=== PATIENT | male | born 1950 | race Caucasian/White ===

== ENCOUNTER → 2016-12-06 | Outpatient (CLI) | payer MEDICARE ==
[~2016-12-06] MED LIST: AMLODIPINE BESY1 TAB PO; ASPIRIN ADULT L81 M2 PO; ASPIRIN325 MG PO; BP PILL; BUMETANIDE1 MG PO; CARVEDILOL12.5 MG PO; CLONIDINE0.2 MG PO; CLONIDINE0.2 MG/21 TD; COREG12.5 M1 PO; ENALAPRIL MALEA10 MG PO; FINASTERIDE5 M1 PO; FLOMAX0.4 MG PO; GLIPIZIDE10 M2 PO; GLUCOTROL5 MG PO; HUMALOG100 U/ML SC; HYDROCHLOROTHIA25 M1 PO; LASIX40 MG PO; METFORMIN1000 MG PO; METFORMIN500 MG PO; NORVASC10 MG PO; SIMVASTATIN20 MG PO; TAMSULOSIN HCL0.4 MG PO; VASOTEC20 MG PO; WATER PILL; ZOCOR20 MG PO
== END | disposition home or self-care (01) ==
LOC: RESCLI 01:10
DX: I12.9 Hypertensive chronic kidney disease with stage 1 through stage 4 chronic kidney disease, or unspecified chronic kidney disease (principal); E78.5 Hyperlipidemia, unspecified; E66.9 Obesity, unspecified; E11.9 Type 2 diabetes mellitus without complications; N18.3 Chronic kidney disease, stage 3 (moderate)

== ENCOUNTER → 2016-12-13 | Outpatient (CLI) | payer MEDICARE | END | disposition home or self-care (01) | LOC: RESCLI 13:41 | DX: I12.9 Hypertensive chronic kidney disease with stage 1 through stage 4 chronic kidney disease, or unspecified chronic kidney disease (principal); N18.3 Chronic kidney disease, stage 3 (moderate); E11.9 Type 2 diabetes mellitus without complications; E78.5 Hyperlipidemia, unspecified ==

== ENCOUNTER 2017-02-17 23:48 | Inpatient (IN) | payer MEDICARE ==
[~2017-02-17] VITALS: Ht 170.1 cm; Wt 115.4 kg
--- NOTE | ~2017-02-17 | PR ---
[place], [place] PROGRESS NOTE NAME: TONY CANCHOLA UNIT #: [id number] ROOM: 407 DOCTOR: BOBBY DINH MD BIRTHDATE: [birth year] DOS: 02/23/2017 PULMONARY PROGRESS NOTE SUBJECTIVE: The patient has been noted comfortable at this time, sitting on the chair. Diuresis for the patient has been ongoing with the current diuretic. Shortness of breath has been improving. There were no symptoms of chest pain or any abdominal pain. OBJECTIVE: VITAL SIGNS: For the patient which has been recorded showed the temperature of the patient noted as normal. The respiratory rate 20, heart rate 83 and blood pressure ____. Pulse oxygen saturation on 2 liters nasal cannula was 96% saturation recorded. HEENT: Showed no acute change. NECK: Supple. CARDIOVASCULAR: S1, S2 audible. LUNGS: The patient was noted without any wheezing or crackles at this time. The breath sounds are noted somewhat decreased in the left lower lung. ABDOMEN: Soft, nontender. EXTREMITIES: Shows progressive resolution of edema of the lower extremities. IMPRESSION: 1. The patient with resolving acute hypercapnic and hypoxic respiratory failure. 2. Resolving acute congestive heart failure. 3. Atelectasis of left lower lobe for this patient was noted as well, possibility of acute pneumonia. LABORATORY DATA: Chest x-ray of the patient done this morning shows improvement in the aeration of the lungs for the patient, but only one x-ray was done. The renal function panel today was noted with BUN 39 and creatinine 1.99. CO2 of 36. PLAN OF TREATMENT: Continue diuretic. Monitor kidney functions closely. Bronchodilators and oxygen supplementation. Other supportive therapy, plan of management to be continued. Usual treatment. Ambulation would be encouraged. [place], [place] PROGRESS NOTE NAME: TONY CANCHOLA UNIT #: [id number] ROOM: 407 DOCTOR: BOBBY DINH MD BIRTHDATE: [birth year] BOBBY MADDOX MD CM:PNTRANS [id number] BOBBY GARCIA MD 02/23/17 2319 interface
--- NOTE | ~2017-02-17 | PROC NOTE ---
[place], [place] PROCEDURE NOTE [id number] UNIT #: [id number] ROOM: [facility] DOCTOR: LESLEY LAMBERT BIRTHDATE: [birth year] DOS: 02/18/2017 MODIFIED BARIUM SWALLOW BACKGROUND HISTORY AND MEDICAL HISTORY: The patient familiar to the speech Department, he was referred for modified barium swallow after bedside assessment, he did not display any overt signs and symptoms of aspiration at bedside, had some mild lingual weakness and range of motion with elevation. The patient reports ____ coughs and chokes and feels like liquids go down the wrong pipe inconsistently and denies this every day. The patient reports he has pneumonia. He has a history of CHF and a stroke in October of 2016. The patient denied modified barium swallow or swallowing therapy, he reported that a therapist told him he did not have any swallowing difficulty per bedside swallow after his initial stroke. The patient reports this is his first incident of pneumonia. The patient currently reports he is on a regular diet but struggles inconsistently with liquids. METHODS AND PROCEDURES: The patient was alert. Able to follow commands. He was seated upright in a wheelchair. The patient was a good historian, was able to self feed. He was administered thin liquid via cup, thin liquid via straw, applesauce with barium paste and a piece of a cookie with barium paste. ORAL PHASE: The patient presents adequate oral phase for all consistencies. He demonstrated good rotary mastication and adequate ability to form and propel a cohesive bolus. No significant oral residue noted in the oral cavity post-swallow. PHARYNGEAL PHASE: The patient demonstrated penetration silently with no cough or throat clear which eventually fell below the level of the vocal cords to be considered aspiration during the swallow on thin liquid. A chin tuck was utilized with a straw with a chin tuck completely to the chest on thin liquid and sequential swallows and patient demonstrated no penetration or aspiration. The patient tolerated applesauce and solid with no pharyngeal residue. Aspiration was suspected due to reduced anterior and laryngeal elevation, which affected airway protection, and epiglottis covering the airway. RECOMMENDATIONS AND IMPRESSION: It is recommended and this was discussed with patient and his nurse that patient chin tuck completely with all liquids including soups and cereals or foods that have liquid in them. Speech pathology will follow the patient at bedside and implement a program for tongue base and laryngeal excursion. It is recommended the patient be seen for him for outpatient or inhouse therapy, whichever he is able to attend upon discharge to continue the program to try to improve his swallow and reduce the need for chin tuck as he was concerned and upset about recommendations to use a chin tuck. Patient tolerates a regular diet. Thank you for this referral. [place], [place] PROCEDURE NOTE NAME: TONY CANCHOLA UNIT #: [id number] ROOM: [facility] DOCTOR: ELSLEY LAMBERT BIRTHDATE: [birth year] LESLEY LAMBERT CM:PROCNOTE:PROCEDURE NOTE [id number] LESLEY LAMBERT
--- NOTE | ~2017-02-17 | PR ---
[place], [place] PROGRESS NOTE NAME: TONY CANCHOLA UNIT #: [id number] ROOM: 407 DOCTOR: BOBBY DINH MD BIRTHDATE: [birth year] DOS: 02/21/2017 SUBJECTIVE: He has been comfortably resting, sitting on the chair, using oxygen supplementation nasal cannula. Denies symptoms of chest pain, nausea, vomiting. The patient has been noted mild coughing without any sputum expectoration. There was no wheezing. OBJECTIVE: VITAL SIGNS: Normal temperature, respiratory rate 20, heart rate 91, blood pressure 130/64-142/59. Intake 2300 mL, output 5200 mL, liters. Pulse oxygen 2 liters nasal cannula 96% saturation. HEENT: Examination shows head was atraumatic. Eyes nonicterus. NECK: Supple. CARDIOVASCULAR: S1, S2 audible. LUNGS: The patient was noted without any wheezing or crackles at the present time. ABDOMEN: Soft, nontender. LABORATORY DATA: The sputum culture for the patient noted normal radha in preliminary from 02/19/2017. The BMP of the patient that was done this morning shows BUN 39, creatinine 2.09, glucose 135, CO2 of 36. The chest x-ray that was done this morning was reviewed with the patient. He was noted with continued improvement in the aeration of the right lung. Area of the left lower lobe atelectasis was noted. Superimposed congestive heart failure finding of the patient has been resolving. IMPRESSION: 1. The patient with progressive resolution of the acute hypercapnic and hypoxic respiratory failure result of acute congestive heart failure and acute bacterial pneumonia. 2. Left lower lobe atelectasis of the patient was still noted. 3. Chronic obesity. 4. Strong clinical suspicion of obstructive sleep apnea disorder. 5. Progressive increased kidney injury of the patient secondary to most likely diuretics and other etiologies. PLAN OF TREATMENT: Monitor respiratory status. Continue the oxygen supplementation and other plan of management. Usual care. Supportive therapy as a plan of care as well. Usual treatments. All other plan of management as previously in progress. Monitoring of the respiratory status closely. [place], [place] PROGRESS NOTE NAME: TONY CANCHOLA UNIT #: [id number] ROOM: 407 DOCTOR: BOBBY DINH MD BIRTHDATE: [birth year] BOBBY MADDOX MD CM:PNTRANS [phone] BOBBY GARCIA MD 02/21/17 1102 interface
--- NOTE | ~2017-02-17 | CON ---
[place], [place] REPORT OF CONSULTATION [id number] UNIT #: [id number] ROOM: [facility] DOCTOR: BOBBY DINH MD BIRTHDATE: [birth year] DOS: 02/18/2017 PULMONARY CONSULTATION EVALUATION AND MANAGEMENT CONSULTATION REQUESTED BY: The hospitalist services for assessment of respiratory status. HISTORY OF PRESENT ILLNESS: A 66-year-old white male patient who has been known with history of recent stroke with the patient with left hemiparesis. The patient has been admitted to the hospital, treated and then later on transferred and managed at [facility]. The patient has been discharged home. He presented to the Emergency Room for patient as the patient has been noted progressive increased edema of bilateral lower extremities for this patient. He was also noted symptoms of shortness of breath. The patient does have mild cough without any sputum expectoration. Denies symptoms of chest pain. The patient noted with some chest congestion of the patient with fever and the chills at home prior to admission. He denies any symptoms of hemoptysis. The patient admitted to the hospital of the patient at this time for the medical management of congestive heart failure with generalized edema. He had been treated in Intensive Care Unit as the patient noted severe hypoxia on admission with a saturation of oxygen noted as 70%. REVIEW OF SYSTEMS: CONSTITUTIONAL SYMPTOMS: Fatigue and tiredness the patient was described. There were symptoms of fever or chills. EYES: Denied any burning, redness, or tenderness. EARS, NOSE, THROAT SYMPTOMS: No sore throat, hoarseness, otalgia, postnasal drainage. CARDIOVASCULAR SYSTEM: The patient was noted with edema on the upper and the lower extremities. Denied palpitations. He has been noted with some symptoms of orthopnea. GASTROINTESTINAL SYMPTOMS: Denies dysphagia, nausea, vomiting, diarrhea, abdominal pain, hematemesis, melena. SKIN: Denies any lesions or rashes. MUSCULOSKELETAL SYMPTOMS: Denies acute joint pain, redness, or tenderness. CENTRAL NERVOUS SYSTEM: He has been noted with recent stroke for this patient with some residual weakness of the patient of the left upper and the lower extremity, but noted significant neurologic recovery for the patient after his recent acute stroke. Remaining systems were reviewed with the patient, they were noted all negative. PAST MEDICAL HISTORY: 1. Noted with history of congestive heart failure, diastolic dysfunction. 2. Chronic kidney disease stage 3. 3. Dyslipidemia. 4. Essential hypertension. 5. History of morbid obesity. 6. History of past pulmonary embolism. 7. Past history of acute stroke for this patient with left hemiparesis. [place], [place] REPORT OF CONSULTATION NAME: TONY CANCHOLA UNIT #: [id number] ROOM: [facility] DOCTOR: BOBBY DINH MD BIRTHDATE: [birth year] PAST SURGICAL HISTORY: Was noted: 1. Surgery of the prostate of the patient and the biopsy for this patient. 2. Removal of basal cell cancer of the skin. SOCIAL HISTORY: The patient stated that he is and has 2 children. He denies any history of tobacco use, alcohol or any illicit drugs. FAMILY HISTORY: Father for this patient at the age between 40 and 50 years old with myocardial infarction. The mother for this patient was known with history of diabetes and cancer. HOME MEDICATIONS: The patient noted on admission is aspirin, Urecholine, Bumex, Coreg, enalapril, finasteride, glipizide, metformin, simvastatin and Flomax. DRUG ALLERGIES: No known drug allergies. PHYSICAL EXAMINATION: GENERAL: A 66-year-old white male who has been currently sitting on the chair for this patient using the oxygen supplementation with a Venturi mask. The patient's height was recorded for the patient on admission by the nursing staff with height of 5 feet 7 inches, weight of 271 pounds for this patient with BMI of 42.4. VITAL SIGNS: For the patient which has been recorded showed the temperature noted as normal since admission, respiratory rate ranged between 18-20, heart rate 77-66, blood pressure 131/65 ____ the patient 145/70. Intake for the patient is 870, output 700 mL since admission. The pulse oxygen saturation with the BiPAP 95% with 50% Venturi mask 95% saturation. HEENT: Examination shows head was atraumatic. Eyes nonicterus, chronic obesity. Decreased posterior pharyngeal space, high tongue base crowding of soft tissue structures. Neck is short and obese. CARDIOVASCULAR SYSTEM: S1, S2 is audible. LUNGS: The patient was noted with crackles of the lungs were noted, which were coarse in the lungs bilaterally. There was no wheezing. ABDOMEN: Soft. EXTREMITIES: Showed 2+ pitting edema upper and the lower extremities. LABORATORY DATA: CBC of the patient that was done for the patient this morning on admission, hemoglobin 9.1, hematocrit 38.9, platelet count was normal. The PT/PTT of the patient noted as normal of the patient this morning on admission in the Emergency Room. CMP this morning, the patient on admission, BUN 49, creatinine 2.01, glucose 304. Albumin 2.7. CK-MB and troponin of the patient earlier and later on for the patient to assess the patient so far noted normal. CBC repeated again this morning, hemoglobin 8.5, hematocrit 29.3, platelet count 249,000. CMP of the patient this morning, glucose 212, BUN of 53, creatinine 1.91. Albumin is still decreased at 2.7. The arterial blood gas that I obtained for this patient this morning, pH of 7.37, pCO2 of 53, pO2 of 57.1. This was done on 50% oxygen Venturi mask. Chest x-ray only 1 view of the patient that was done for this patient during the current hospitalization was [place], [place] REPORT OF CONSULTATION NAME: TONY CANCHOLA UNIT #: [id number] ROOM: [facility] DOCTOR: VARSHA GARCIA MD,[facility] BIRTHDATE: [birth year] personally reviewed, finding of patchy infiltration of the patient's lungs for the patient with interstitial infiltration of the patient in the lungs, possible consolidation of the patient in the left lingula and lower lobe cannot be completely excluded. The left upper lung appeared to be clear. Cardiomegaly of the patient was also suspected partly accentuated because of the portable x-ray and some rotation effects of the patient ____ was rotated a little bit to the right side. This also gave a false appearance of widening of the mediastinum. The chest x-ray of the patient that was done for the patient on 12/19/2016 for the patient was reviewed. It does show cardiomegaly of the patient and relatively clear lungs. IMPRESSION: 1. The patient who has been currently admitted to the hospital noted with acute severe hypoxemic respiratory failure with history of chronic hypercarbia maybe related with obesity hypoventilation and other reasons. 2. Findings consistent with acute congestive heart failure, diastolic dysfunction. 3. Chronic kidney disease ____ some acute component of congestive heart failure was suspected. 4. Uncontrolled diabetes mellitus also noted. 5. Recent acute stroke for this patient with progressive neurologic recovery of the patient noted with the left hemiparesis. Possibility with aspiration pneumonia of the patient cannot be completely excluded in addition to areas of atelectasis of the patient secondary to impaired secretion clearance. 6. The patient with edema of the extremities as well. PLAN OF TREATMENT: The BiPAP for this patient setting will be maximized for the patient to maintain a good ____ for this patient for ventilatory support for the respiratory failure with settings of 14/10. The bronchodilator to be continued to be given for patient to help clear secretion. Ordered sputum for Gram stain and culture. Diuretic therapy has been already noted in progress. The patient has been getting IV antibiotic with vancomycin, Levaquin and Zosyn, which will spectrum will be reduced based on the cultures availability of the blood and the sputum. Other supportive therapy, plan of management. Usual care. Further treatment changes will be done based on progression of the illness. The patient already receiving the DVT prophylaxis with the Lovenox which will suffice. ____ obtain a chest x-ray of the patient tomorrow for reassess the patient, PA lateral view for more accurate assessment. The pleural fluid for the patient which has been suspected on the right side at this time will be monitored closely. No immediate intervention will be needed. The patient has been already ordered the modified barium swallow of the patient to assess the ____ patient for possibility of aspiration may be related to the previous history of a stroke. Thanks for allowing me to participate in the care of this patient. [place], [place] REPORT OF CONSULTATION NAME: TONY CANCHOLA UNIT #: [id number] ROOM: [facility] DOCTOR: VARSHA GARCIA MD,BOBBY BIRTHDATE: [birth year] BOBBY MADDOX MD CM:CONSTR:REPORT OF CONSULTATION 1155 02/19/17 0256 interface
--- NOTE | ~2017-02-17 | CON ---
[place], [place] REPORT OF CONSULTATION NAME: [id number] UNIT #: [id number] ROOM: 407 DOCTOR: MARCIA MISTRY MD BIRTHDATE: [birth year] DOS: 02/20/2017 NEPHROLOGY CONSULTATION REASON FOR CONSULTATION: Chronic kidney disease. The patient is known to you. HISTORY OF PRESENT ILLNESS: The patient is a 66-year-old male. He has a history of known chronic kidney disease, hypertension, diabetes and proteinuria with urinary retention as well. The patient is known to our practice since he has seen my associate, Dr. Abbott in the office about a month ago. His baseline creatinine appears to be in the middle to upper ones range with fluctuations at times with his diuretics. The patient does have a history of proteinuria was felt to be related to diabetic nephropathy. Apparently, he had negative serological workup. The details of that are not clear. The patient does give a history of vitamin D deficiency and BPH as well. He was admitted to the hospital a few days ago it seems. I am not clear of the details but since he is being treated for his CHF exacerbation and possible pneumonia. His creatinine levels have fluctuated, but have been fairly stable in the range of 1.8-2.0. He tells me he does feel better. He still appears to be volume overloaded on my assessment. He has a Mata catheter in place and is producing adequate urine. He remains on IV Bumex 1 mg twice a day. He also has been on antibiotics. He denied fevers, chills, night sweats, nausea or vomiting. He has a good appetite. ALLERGIES: Listed as no known drug allergies. MEDICATIONS: Reviewed and include enalapril, Bumex, finasteride, aspirin, simvastatin, Flomax, insulin, glipizide, Lovenox, Zosyn, vancomycin, Levaquin to name a few. PAST MEDICAL HISTORY: 1. Known chronic kidney disease as stated above. 2. Urinary retention. 3. Proteinuria, which apparently has been nephrotic range with the presumption of diabetic nephropathy. 4. CHF, diastolic dysfunction. 5. History of diabetes mellitus type 2. 6. Hyperlipidemia. 7. Hypertension. 8. Obesity. 9. Anemia. 10. History of PE. 11. History of stroke. 12. Prostate biopsy in the past. 13. BPH. 14. Skin cancer excision. FAMILY HISTORY: Negative for chronic kidney disease. Positive for diabetes otherwise, noncontributory. [place], [place] REPORT OF CONSULTATION NAME: TONY CANCHOLA UNIT #: [id number] ROOM: 407 DOCTOR: MARCIA MISTRY MD BIRTHDATE: [birth year] SOCIAL HISTORY: No tobacco, alcohol or illicit drugs presently. REVIEW OF SYSTEMS: As per HPI, otherwise a 10-point review of systems was reviewed and was negative. PHYSICAL EXAMINATION: VITAL SIGNS: Temperature is 97.9, pulse 77, respiratory rate 20, blood pressure 127/60. HEENT: Shows no JVD. Sclerae are anicteric. Mucous membranes were moist. Pharynx was clear. NECK: Supple. Trachea is midline. There is no neck lymphadenopathy. There is no thyromegaly. LUNGS: Fairly clear. No crackles, wheezing or rales. There was no tactile fremitus. He is not using accessory muscles of respiration. HEART: Normal S1, S2. No rub, no thrill, no gallop. ABDOMEN: Obese, soft, nontender. There is no organomegaly or rigidity. There is no rebound or guarding. There is no CVA tenderness. EXTREMITIES: 1-2+ edema. There is no lower extremity lymphadenopathy. Distal pulses are 2+. SKIN: Showed no overt rash. There are no petechiae or purpura. Skin temperature was warm. NEUROLOGIC: He is awake, alert. He is following commands. Cranial nerves were intact. LABORATORY DATA: Hemoglobin 8.3, white count of 7.0, platelets of 226. This was from 02/19/2017, BUN 38, creatinine 1.98, sodium 143, potassium 4.3, CO2 of 35, calcium of 8.5. Blood cultures from 02/18/2017 showed no growth. IMPRESSION: 1. Stage 3 chronic kidney disease with a baseline creatinine that appears to be in the middle to upper ones range with fluctuations at times. He appears to have underlying diabetic nephropathy as well as hypertensive nephrosclerosis. 2. Congestive heart failure with volume overload. 3. History of BPH and urinary retention. 4. Anemia, likely of chronic disease. 5. History of diabetes mellitus. 6. Hypertension. 7. Questionable pneumonia. PLAN: 1. Continue ongoing supportive care. The patient is on IV diuretics. Attempt to achieve a negative fluid balance. Replace electrolytes as needed. Follow labs daily while in the hospital. 2. Dose medication for current creatinine clearance. If vancomycin is to continue follow random levels. 3. We would recommend stopping Lovenox in the setting of chronic kidney disease and use subcutaneous heparin for DVT prophylaxis. 4. Okay to continue his FREDI inhibitor with a stable creatinine from a renal standpoint. 5. Avoid using NSAIDs. Avoid nephrotoxic agents as possible. [place], [place] REPORT OF CONSULTATION NAME: TONY CANCHOLA UNIT #: [id number] ROOM: 407 DOCTOR: FEDE CHRISTINA,MARCIA Espitia BIRTHDATE: [birth year] 6. Continue ongoing supportive care. Thank you for this consultation. We will follow with you. MARCIA MISTRY MD CM:CONSTR:REPORT OF CONSULTATION 1257 02/20/17 1445 interface
--- NOTE | ~2017-02-17 | PR ---
[place], [place] PROGRESS NOTE NAME[id number] UNIT #: [id number] ROOM: 407 DOCTOR: VARSHA GARCIA MD,BOBBY BIRTHDATE: [birth year] DOS: 02/24/2017 SUBJECTIVE: The patient has been comfortably resting on the chair. Denies symptoms of chest pain. Shortness of breath has been improving. The patient undergoing physical therapy and occupation therapy. He has been recommended group home placement. The patient refused to do so and likely be discharged to home setting. He denies symptoms of chest pain or any abdominal pain. OBJECTIVE: VITAL SIGNS: For the patient, which have been recorded shows the blood pressure noted as 118/60, respiratory rate 18, heart rate 79, normal temperature. Intake for the patient was 1900 mL, output 3600 mL. Negative fluid balance approximately 1600 mL. Pulse oxygen saturation on 2 liters nasal cannula 98% saturation recorded. HEENT: Examination shows head was atraumatic. Eyes nonicterus. NECK: Supple. CARDIOVASCULAR: S1, S2 audible. LUNGS: Noted without any wheezing or crackles. ABDOMEN: Soft, nontender. IMPRESSION: Progressive resolution of atelectasis and/or pneumonia combination of the left lower lobe with resolving acute congestive heart failure, progressively. Refused to go to group home facility. PLAN OF TREATMENT: No changes in the plan of management at this time. Other supportive therapy, plan of management to be continued. Usual care. Ordered the supportive plan of therapies. Usual medical management. BOBBY MADDOX MD CM:PNTRANS [id number] BOBBY GARCIA MD 02/24/172116 interface
--- NOTE | ~2017-02-17 | PR ---
[place], [place] PROGRESS NOTE NAME: TONY CANCHOLA UNIT #: [id number] ROOM: 407 DOCTOR: BOBBY DINH MD BIRTHDATE: [birth year] DOS: 02/20/2017 PULMONARY FOLLOWUP NOTE SUBJECTIVE: He has been noted comfortable at this time. The patient denies any symptoms of chest pain or abdominal pain. The edema of the extremity has been improving. This morning, the patient is seen sitting on the chair comfortably. OBJECTIVE: VITAL SIGNS: Shows normal temperature, respiratory rate 20, heart rate 77, and blood pressure 127/60-140/70. Intake 1500, output 4.851 L, negative fluid balance of 3.3 L. The pulse oxygen saturation on 4 L nasal cannula was recorded 93% saturation. HEENT: Examination shows chronic obesity. Head was atraumatic. Eyes nonicterus. NECK: Supple. CARDIOVASCULAR SYSTEM: S1, S2 is audible. LUNGS: For the patient noted mild reduction in the breath sounds were noted bilaterally. ABDOMEN: Soft, nontender. LABORATORY DATA: BMP this morning, BUN 38, creatinine 1.98, glucose was normal, carbon dioxide 35. Urine culture, no bacterial growth from the . Blood culture on showed no bacterial growth. IMPRESSION: 1. The patient with progressive gradual resolution of the acute congestive heart failure for the patient as well as acute bacterial pneumonia progressively. 2. Chronic obesity as well. All the cultures so far noted negative. PLAN OF TREATMENT: Reducing the spectrum of the antibiotics for the patient based on the culture results would be considered. The patient has not used the BiPAP for the last 24 hours. He will be monitored closely for that. Other supportive therapy, plan of management. Another chest x-ray will be repeated in the morning. [place], [place] PROGRESS NOTE NAME: TONY CANCHOLA UNIT #: [id number] ROOM: 407 DOCTOR: BOBBY DINH MD BIRTHDATE: [birth year] BOBBY MADDOX MD CM:PNTRANS 1258 1415 BOBBY GARCIA MD 02/20/17 1415 interface
--- NOTE | ~2017-02-17 | PR ---
[place], [place] PROGRESS NOTE NAME: TONY CANCHOLA UNIT #: [id number] ROOM: 407 DOCTOR: BOBBY DINH MD BIRTHDATE: [birth year] DOS: 02/22/2017 PULMONARY PROGRESS NOTE SUBJECTIVE: He has been noted comfortable at this time, sitting on the chair. Diuretic for the patient has been continued. Shortness of breath of the patient and other symptoms of the patient has been resolving progressively. OBJECTIVE: VITAL SIGNS: For the patient which have been recorded shows normal temperature, respiratory rate recorded at 18, heart rate of 81, blood pressure 126/58. The pulse oxygen saturation for the patient recorded on 2 liters nasal cannula was 98% saturation. HEENT: Chronic obesity. Head was atraumatic. Eyes nonicterus. NECK: Supple. CARDIOVASCULAR: S1, S2 audible. LUNGS: Noted with questionable crackles, no wheezing. ABDOMEN: Soft, nontender. LABORATORY DATA: Culture of the sputum shows normal radha. The CBC of the patient that was done this morning was noted with hemoglobin 8.7, hematocrit 29.5 and platelet count 258,000. BMP this morning was noted with BUN 39, creatinine 2.03. Glucose mildly elevated. The chest x-ray of the patient that was done yesterday was reviewed for this patient shows atelectasis and infiltration noted in the left lower lobe for this patient. Small infiltration, atelectasis in the right lower lobe was also seen. IMPRESSION: The patient who has been currently noted with: 1. Resolving acute hypercapnic-hypoxic respiratory failure. 2. Resolving acute congestive heart failure. 3. Acute pneumonia with some area of atelectasis of the patient noted in the lower lobe as well. 4. Chronic obesity. 5. Suspected obstructive sleep apnea disorder clinically. 6. Acute kidney injury for the patient secondary to diuretics and congestive heart failure. PLAN OF TREATMENT: Continue the current therapy, plan and management as in progress. Continue other supportive therapy, plan of care, other usual treatment. Supportive plan of management and therapies. No other change in treatment immediately will be needed. [place], [place] PROGRESS NOTE NAME: TONY CANCHOLA UNIT #: [id number] ROOM: 407 DOCTOR: BOBBY DINH MD BIRTHDATE: [birth year] BOBBY MADDOX MD CM:JOANNE 1113 20 BOBBY GARCIA MD 02/22/17 122 interface
--- NOTE | ~2017-02-17 | PR ---
[place], [place] PROGRESS NOTE NAME: TONY CANCHOLA UNIT #: [id number] ROOM: 407 DOCTOR: BOBBY DINH MD BIRTHDATE: [birth year] DOS: 02/19/2017 PULMONARY PROGRESS NOTE SUBJECTIVE: He has been noted comfortable at this time, resting on his bed. Denies symptoms of chest pain or any abdominal pain. Edema of the lower extremity, the patient has been improving gradually. There were no symptoms of chest pain or any abdominal pain. OBJECTIVE: VITAL SIGNS: The patient showed normal temperature, respiratory rate 20, heart rate 79, blood pressure 156/67-138/67. Intake for the patient is 1600, output 3000 mL, negative for balance approximately 1200 mL, pulse oxygen saturation on 4 liters nasal cannula 93% saturation recorded. HEENT: Examination shows chronic severe obesity. NECK: Supple. CARDIOVASCULAR: S1, S2 audible. LUNGS: Noted with scattered crackles of the lungs was still noted. There were no wheezing. ABDOMEN: Soft, nontender. LABORATORY DATA: CBC this morning, hemoglobin 8.3, hematocrit 28.7, platelet count was normal. The BMP of patient this morning, BUN 43, creatinine 1.70. Chest x-ray of the patient that was done this morning showed reduction of previously noted interstitial edema and pulmonary infiltration for the patient. IMPRESSION: 1. The patient with the progressive and gradual resolution. The patient noted with acute hypoxic respiratory failure for this patient from yesterday with the improving pulmonary infiltration. The patient as well as congestive heart failure and hypercarbia. 2. The patient with diastolic dysfunction as well. PLAN OF TREATMENT: Continue use of the BiPAP, oxygen supplementation, bronchodilators, antibiotics for the acute pneumonia with reduction of the spectrum of the antibiotics based on the final culture results availability. Other supportive plan and management to be continued as well. Usual care. Other supportive treatment, plan and management to be done for the patient based on the progression of his illness. The patient had been planned for transfer to the telemetry floor today. [place], [place] PROGRESS NOTE NAME: TONY CANCHOLA UNIT #: [id number] ROOM: 407 DOCTOR: BOBBY DINH MD BIRTHDATE: [birth year] BOBBY MADDOX MD CM:PNTRANS 42 12 BOBBY GARCIA MD 02/19/172312 interface
[2017-02-17 23:50] VITALS: BP 111/54
[2017-02-18] VITALS (7 sets, daily range): BP systolic 118–148; BP diastolic 59–80
[2017-02-18 00:19] LABS: BASO # 0.1 10*3/uL (0.0-0.1); BASO % 0.5 % (0.0-1.0); EOS # 0.2 10*3/uL (0.0-0.4); EOS % 1.8 % (1.0-4.0); HEMATOCRIT 30.9 % (42.0-52.0); HEMOGLOBIN 9.1 g/dl (14.0-18.0); IG # 0.1 10*3/uL (0.0-0.1); LYMPH # 1.1 10*3/uL (1.3-4.4); LYMPH % 10.9 % (27.0-41.0); MEAN CELL VOLUME 96.9 fl (80.0-94.0); MEAN CORPUSCULAR HGB 28.5 pg (27.0-31.0); MEAN CORPUSCULAR HGB CONC 29.4 g/dl (33.0-37.0); MEAN PLATELET VOLUME 9.5 fl (9.6-12.3); MONO # 0.6 10*3/uL (0.1-1.0); MONO % 5.7 % (3.0-9.0); NEUT # 8.2 10*3/uL (2.3-7.9); NEUT % 79.9 % (47.0-73.0); PLATELET COUNT AUTOMATED 269 10*3/uL (130-400); RED BLOOD COUNT 3.19 10*6/uL (4.50-5.90); WHITE BLOOD COUNT 10.3 10*3/uL (4.8-10.8)
[2017-02-18 00:30] LABS: PROTHROMBIN TIME 10.7 SECONDS (9.0-12.4)
[2017-02-18 00:38] LABS: ALBUMIN 2.7 gm/dl (3.1-4.5); ALKALINE PHOSPHATASE 109 U/L (45-117); BILIRUBIN, TOTAL 0.1 mg/dl (0.2-1.0); BUN 49 mg/dl (7-24); CARBON DIOXIDE 29 mmol/L (21-32); CHLORIDE 102 mmol/L (98-107); EST GLOM FILT AFRICAN AMERICAN 40 ml/min; GLUCOSE 304 mg/dL (65-99); MAGNESIUM 1.8 mg/dL (1.5-2.1); POTASSIUM 4.8 mmol/L (3.5-5.1); SGOT/AST 19 IU/L (3-35); SGPT/ALT 41 U/L (12-78); SODIUM 142 mmol/L (136-145); TOTAL PROTEIN 7.2 gm/dL (6.4-8.2)
[2017-02-18 00:39] LABS: TROPONIN I < 0.015 ng/ml (<0.045)
[2017-02-18] MEDS ORDERED: URECHOLINE10 MG PO (02:15)
[2017-02-18 05:49] LABS: BILIRUBIN NEGATIVE (NEGATIVE); BLOOD TRACE-INTACT (NEGATIVE); CLARITY SL CLOUDY (CLEAR); COLOR YELLOW (YELLOW); GLUCOSE TRACE (NEGATIVE); KETONE NEGATIVE (NEGATIVE); LEUKO ESTERASE TRACE (NEGATIVE); NITRITE NEGATIVE (NEGATIVE); PROTEIN 2+ (NEGATIVE); SPECIFIC GRAVITY 1.025 (1.005-1.030); UROBILINOGEN 0.2 E.U./dl (0.2-1.0)
[2017-02-18 06:06] LABS: CKMB 0.8 ng/ml (0.5-3.6); CPK 27 U/L (39-308)
[2017-02-18 06:07] LABS: BASO % 0.4 % (0.0-1.0); EOS # 0.2 10*3/uL (0.0-0.4); EOS % 1.6 % (1.0-4.0); HEMATOCRIT 29.3 % (42.0-52.0); HEMOGLOBIN 8.5 g/dl (14.0-18.0); IG # 0.1 10*3/uL (0.0-0.1); LYMPH # 1.1 10*3/uL (1.3-4.4); LYMPH % 11.3 % (27.0-41.0); MEAN CELL VOLUME 96.7 fl (80.0-94.0); MEAN CORPUSCULAR HGB 28.1 pg (27.0-31.0); MEAN PLATELET VOLUME 9.5 fl (9.6-12.3); MONO # 0.6 10*3/uL (0.1-1.0); MONO % 6.2 % (3.0-9.0); NEUT # 7.4 10*3/uL (2.3-7.9); NEUT % 79.4 % (47.0-73.0); PLATELET COUNT AUTOMATED 249 10*3/uL (130-400); RED BLOOD COUNT 3.03 10*6/uL (4.50-5.90); WHITE BLOOD COUNT 9.3 10*3/uL (4.8-10.8)
[2017-02-18 06:14] LABS: TROPONIN I < 0.015 ng/ml (<0.045)
[2017-02-18 06:24] LABS: ALBUMIN 2.6 gm/dl (3.1-4.5); BILIRUBIN, TOTAL 0.1 mg/dl (0.2-1.0); MAGNESIUM 1.9 mg/dL (1.5-2.1); PHOSPHOROUS 3.9 mg/dL (2.5-4.9); POTASSIUM 4.8 mmol/L (3.5-5.1); TOTAL PROTEIN 6.7 gm/dL (6.4-8.2)
[2017-02-18 06:50] LABS: BACTERIA 2+; URINE REFLEX COMMENT YES (NO)
[2017-02-18 09:46] LABS: ABG BASE EXCESS 4.7 mmol/L (-2.0-2.0); ABG CO2 CONTENT 32.1 mmol/L (23-27); ABG HCO3 30.4 mmol/l (22-26); ARTERIAL BLOOD GAS PH 7.372 (7.35-7.45); ARTERIAL BLOOD GAS PO2 57.1 mmHg (80-90)
[2017-02-18 12:08] LABS: CPK 22 U/L (39-308)
[2017-02-18 12:11] LABS: TROPONIN I < 0.015 ng/ml (<0.045)
[2017-02-19] VITALS: BP 148/76
[2017-02-19 04:00] VITALS: BP 150/74
[2017-02-19 05:34] LABS: POTASSIUM 4.5 mmol/L (3.5-5.1)
[2017-02-19 05:57] LABS: BASO % 0.6 % (0.0-1.0); EOS # 0.2 10*3/uL (0.0-0.4); EOS % 2.8 % (1.0-4.0); HEMATOCRIT 28.7 % (42.0-52.0); HEMOGLOBIN 8.3 g/dl (14.0-18.0); LYMPH # 1.1 10*3/uL (1.3-4.4); LYMPH % 15.7 % (27.0-41.0); MEAN CELL VOLUME 96.3 fl (80.0-94.0); MEAN CORPUSCULAR HGB 27.9 pg (27.0-31.0); MEAN CORPUSCULAR HGB CONC 28.9 g/dl (33.0-37.0); MEAN PLATELET VOLUME 9.5 fl (9.6-12.3); MONO # 0.6 10*3/uL (0.1-1.0); NEUT # 5.1 10*3/uL (2.3-7.9); NEUT % 72.3 % (47.0-73.0); PLATELET COUNT AUTOMATED 226 10*3/uL (130-400); RED BLOOD COUNT 2.98 10*6/uL (4.50-5.90)
[2017-02-19 08:00] VITALS: BP 132/70
[2017-02-19 12:00] VITALS: BP 138/68
[2017-02-19 16:00] VITALS: BP 156/67
[2017-02-19 20:00] VITALS: BP 150/64
[2017-02-20] VITALS: BP 130/52
[2017-02-20 06:32] LABS: POTASSIUM 4.6 mmol/L (3.5-5.1)
[2017-02-20 08:00] VITALS: BP 140/70
[2017-02-20 12:00] VITALS: BP 127/60
[2017-02-20 16:00] VITALS: BP 161/69
[2017-02-20 20:47] VITALS: BP 146/63
[2017-02-21] VITALS: BP 142/59
[2017-02-21 04:00] VITALS: BP 155/63
[2017-02-21 07:06] LABS: POTASSIUM 4.8 mmol/L (3.5-5.1)
[2017-02-21 08:00] VITALS: BP 130/64
[2017-02-21 12:00] VITALS: BP 149/71
[2017-02-21 16:00] VITALS: BP 156/71
[2017-02-21 20:00] VITALS: BP 154/60
[2017-02-22] VITALS: BP 155/63
[2017-02-22 06:43] LABS: BASO % 0.4 % (0.0-1.0); EOS # 0.3 10*3/uL (0.0-0.4); EOS % 4.3 % (1.0-4.0); HEMATOCRIT 29.5 % (42.0-52.0); HEMOGLOBIN 8.7 g/dl (14.0-18.0); IG # 0.1 10*3/uL (0.0-0.1); LYMPH % 14.3 % (27.0-41.0); MEAN CELL VOLUME 95.2 fl (80.0-94.0); MEAN CORPUSCULAR HGB 28.1 pg (27.0-31.0); MEAN CORPUSCULAR HGB CONC 29.5 g/dl (33.0-37.0); MEAN PLATELET VOLUME 9.3 fl (9.6-12.3); MONO # 0.8 10*3/uL (0.1-1.0); MONO % 11.1 % (3.0-9.0); NEUT # 4.8 10*3/uL (2.3-7.9); NEUT % 69.2 % (47.0-73.0); PLATELET COUNT AUTOMATED 258 10*3/uL (130-400); RED CELL DISTRI WIDTH 14.3 % (0-14.5); WHITE BLOOD COUNT 6.9 10*3/uL (4.8-10.8)
[2017-02-22 07:28] LABS: POTASSIUM 4.5 mmol/L (3.5-5.1)
[2017-02-22 08:00] VITALS: BP 126/58
[2017-02-22 12:00] VITALS: BP 132/70
[2017-02-22 16:00] VITALS: BP 138/63
[2017-02-22 20:00] VITALS: BP 137/57
[2017-02-23] VITALS: BP 141/62
[2017-02-23 07:03] LABS: ALBUMIN 2.5 gm/dl (3.1-4.5); PHOSPHOROUS 4.8 mg/dL (2.5-4.9); POTASSIUM 4.8 mmol/L (3.5-5.1)
[2017-02-23 08:00] VITALS: BP 128/62
[2017-02-23 11:54] VITALS: BP 142/60
[2017-02-23 16:00] VITALS: BP 143/64
[2017-02-23 20:00] VITALS: BP 140/70
[2017-02-24] VITALS: BP 157/67
[2017-02-24 08:00] VITALS: BP 118/60
[2017-02-24] MEDS ORDERED: LEVAQUIN750 M1 PO (11:39)
[2017-02-24 12:00] VITALS: BP 151/60
[2017-02-24] MEDS ORDERED: OXYGEN NAS (14:51)
[2017-02-24 16:00] VITALS: BP 161/76
== END 2017-02-24 17:34 | disposition home health service (06) | DRG 177 ==
LOC: ED 23:48 → EDHOLD 02-18 01:53 → 4E 02-18 01:53 → ICCU 02-18 01:53 → 4E 02-19 12:43
PROVIDERS: Emergency Medicine Emergency Medical Services; Hospitalist; Internal Medicine; Internal Medicine Critical Care Medicine
PROC: 5A09457 Assistance with Respiratory Ventilation, 24-96 Consecutive Hours, Continuous Positive Airway Pressure (ICD-10-PCS; principal; 2017-02-18)
PROC: BD1BYZZ Fluoroscopy of Mouth/Oropharynx using Other Contrast (ICD-10-PCS; principal; 2017-02-18)
DX: J15.6 Pneumonia due to other Gram-negative bacteria (principal); I50.31 Acute diastolic (congestive) heart failure; J96.21 Acute and chronic respiratory failure with hypoxia; E43 Unspecified severe protein-calorie malnutrition; J96.22 Acute and chronic respiratory failure with hypercapnia; N17.9 Acute kidney failure, unspecified; I13.0 Hypertensive heart and chronic kidney disease with heart failure and stage 1 through stage 4 chronic kidney disease, or unspecified chronic kidney disease; E11.22 Type 2 diabetes mellitus with diabetic chronic kidney disease; N18.3 Chronic kidney disease, stage 3 (moderate); E66.01 Morbid (severe) obesity due to excess calories; D64.9 Anemia, unspecified; E78.5 Hyperlipidemia, unspecified; G47.33 Obstructive sleep apnea (adult) (pediatric); T50.2X5A Adverse effect of carbonic-anhydrase inhibitors, benzothiadiazides and other diuretics, initial encounter; R33.9 Retention of urine, unspecified; Z86.73 Personal history of transient ischemic attack (TIA), and cerebral infarction without residual deficits; Z82.49 Family history of ischemic heart disease and other diseases of the circulatory system; Z83.3 Family history of diabetes mellitus; Z80.9 Family history of malignant neoplasm, unspecified; Z79.82 Long term (current) use of aspirin; Z79.899 Other long term (current) drug therapy; Z79.84 Long term (current) use of oral hypoglycemic drugs; Z68.36 Body mass index [BMI] 36.0-36.9, adult

== ENCOUNTER → 2017-03-31 | Outpatient (CLI) | payer MEDICARE ==
[~2017-03-31] MED LIST changes: +LEVAQUIN750 M1 PO; +OXYGEN NAS; +URECHOLINE10 MG PO
[2017-03-31 11:00] LABS: BASO % 0.5 % (0.0-1.0); EOS # 0.4 10*3/uL (0.0-0.4); HEMOGLOBIN 9.6 g/dl (14.0-18.0); IG # 0.1 10*3/uL (0.0-0.1); LYMPH # 1.7 10*3/uL (1.3-4.4); LYMPH % 22.3 % (27.0-41.0); MEAN CELL VOLUME 92.8 fl (80.0-94.0); MEAN CORPUSCULAR HGB 27.8 pg (27.0-31.0); MEAN PLATELET VOLUME 9.2 fl (9.6-12.3); MONO # 0.6 10*3/uL (0.1-1.0); MONO % 7.3 % (3.0-9.0); NEUT # 4.8 10*3/uL (2.3-7.9); NEUT % 64.1 % (47.0-73.0); PLATELET COUNT AUTOMATED 205 10*3/uL (130-400); RED BLOOD COUNT 3.45 10*6/uL (4.50-5.90); RED CELL DISTRI WIDTH 14.8 % (0-14.5); WHITE BLOOD COUNT 7.5 10*3/uL (4.8-10.8)
[2017-03-31 11:01] LABS: BILIRUBIN NEGATIVE (NEGATIVE); BLOOD 1+ (NEGATIVE); CLARITY CLEAR (CLEAR); COLOR YELLOW (YELLOW); GLUCOSE TRACE (NEGATIVE); KETONE NEGATIVE (NEGATIVE); LEUKO ESTERASE NEGATIVE (NEGATIVE); NITRITE NEGATIVE (NEGATIVE); PH 5.5 (5.0-9.0); PROTEIN 2+ (NEGATIVE); SPECIFIC GRAVITY 1.015 (1.005-1.030); UROBILINOGEN 0.2 E.U./dl (0.2-1.0)
[2017-03-31 11:11] LABS: URINE TP/CRE RATIO 2.8 (<0.21)
[2017-03-31 11:16] LABS: BACTERIA TRACE; EPITHELIAL CELLS 0-2; WBC 0-2 wbc/hpf (0-5)
[2017-03-31 11:30] LABS: ALBUMIN 3.4 gm/dl (3.1-4.5); PHOSPHOROUS 4.5 mg/dL (2.5-4.9); POTASSIUM 4.8 mmol/L (3.5-5.1)
[2017-03-31 11:58] LABS: PTH INTACT 124.8 pg/mL (14.0-72.0); VITAMIN D, 25-HYDROXY 32.7 ng/mL (30-100)
== END | disposition home or self-care (01) ==
LOC: LAB 10:42
PROVIDERS: Internal Medicine Nephrology
DX: N18.3 Chronic kidney disease, stage 3 (moderate) (principal); E55.9 Vitamin D deficiency, unspecified

== ENCOUNTER → 2017-04-12 | Outpatient (CLI) | payer MEDICARE | END | disposition home or self-care (01) | LOC: RESCLI 04-08 13:14 | DX: I13.0 Hypertensive heart and chronic kidney disease with heart failure and stage 1 through stage 4 chronic kidney disease, or unspecified chronic kidney disease (principal); E11.22 Type 2 diabetes mellitus with diabetic chronic kidney disease; I50.9 Heart failure, unspecified; N18.9 Chronic kidney disease, unspecified; E78.5 Hyperlipidemia, unspecified; N40.0 Benign prostatic hyperplasia without lower urinary tract symptoms ==

== ENCOUNTER → 2017-05-05 | Outpatient (CLI) | payer MEDICARE | END | disposition home or self-care (01) | LOC: CT 13:29 | DX: R91.8 Other nonspecific abnormal finding of lung field (principal); C43.9 Malignant melanoma of skin, unspecified; J84.9 Interstitial pulmonary disease, unspecified; I25.10 Atherosclerotic heart disease of native coronary artery without angina pectoris; Z86.73 Personal history of transient ischemic attack (TIA), and cerebral infarction without residual deficits ==

== ENCOUNTER → 2017-07-11 | Outpatient (CLI) | payer MEDICARE ==
[2017-07-11 14:03] LABS: BASO % 0.3 % (0.0-1.0); EOS # 0.2 10*3/uL (0.0-0.4); EOS % 2.4 % (1.0-4.0); HEMATOCRIT 31.8 % (42.0-52.0); HEMOGLOBIN 9.7 g/dl (14.0-18.0); IG # 0.1 10*3/uL (0.0-0.1); LYMPH # 1.5 10*3/uL (1.3-4.4); LYMPH % 19.3 % (27.0-41.0); MEAN CELL VOLUME 98.1 fl (80.0-94.0); MEAN CORPUSCULAR HGB 29.9 pg (27.0-31.0); MEAN CORPUSCULAR HGB CONC 30.5 g/dl (33.0-37.0); MEAN PLATELET VOLUME 9.5 fl (9.6-12.3); MONO # 0.6 10*3/uL (0.1-1.0); MONO % 8.2 % (3.0-9.0); NEUT # 5.2 10*3/uL (2.3-7.9); NEUT % 68.6 % (47.0-73.0); PLATELET COUNT AUTOMATED 172 10*3/uL (130-400); RED BLOOD COUNT 3.24 10*6/uL (4.50-5.90); RED CELL DISTRI WIDTH 14.6 % (0-14.5); WHITE BLOOD COUNT 7.6 10*3/uL (4.8-10.8)
[2017-07-11 14:26] LABS: ALBUMIN 3.2 gm/dl (3.1-4.5); BILIRUBIN, TOTAL 0.2 mg/dl (0.2-1.0); TOTAL PROTEIN 7.2 gm/dL (6.4-8.2)
[2017-07-11 14:37] LABS: HEMOGLOBIN A1c 9.2 % (4.8-5.6)
== END | disposition home or self-care (01) ==
LOC: RESCLI 00:22 → LAB 00:22 → RESCLI 08:39
PROVIDERS: Internal Medicine
DX: E11.21 Type 2 diabetes mellitus with diabetic nephropathy (principal)

== ENCOUNTER → 2017-08-01 | Outpatient (CLI) | payer MEDICARE ==
[2017-08-01 14:13] LABS: BASO % 0.3 % (0.0-1.0); EOS # 0.2 10*3/uL (0.0-0.4); EOS % 1.7 % (1.0-4.0); HEMATOCRIT 32.3 % (42.0-52.0); HEMOGLOBIN 9.9 g/dl (14.0-18.0); LYMPH # 1.5 10*3/uL (1.3-4.4); LYMPH % 16.4 % (27.0-41.0); MEAN CELL VOLUME 99.1 fl (80.0-94.0); MEAN CORPUSCULAR HGB 30.4 pg (27.0-31.0); MEAN CORPUSCULAR HGB CONC 30.7 g/dl (33.0-37.0); MEAN PLATELET VOLUME 10.1 fl (9.6-12.3); MONO # 0.7 10*3/uL (0.1-1.0); NEUT # 6.8 10*3/uL (2.3-7.9); NEUT % 73.2 % (47.0-73.0); PLATELET COUNT AUTOMATED 182 10*3/uL (130-400); RED BLOOD COUNT 3.26 10*6/uL (4.50-5.90); RED CELL DISTRI WIDTH 13.8 % (0-14.5); WHITE BLOOD COUNT 9.3 10*3/uL (4.8-10.8)
[2017-08-01 14:15] LABS: URINE CREATININE RANDOM 39.7 mg/dL
[2017-08-01 14:18] LABS: ALBUMIN 3.2 gm/dl (3.1-4.5); CREATININE 2.15 mg/dL (0.70-1.30); MAGNESIUM 2.3 mg/dL (1.5-2.1); PHOSPHOROUS 4.2 mg/dL (2.5-4.9)
[2017-08-01 15:00] LABS: BILIRUBIN NEGATIVE (NEGATIVE); BLOOD TRACE-LYSED (NEGATIVE); CLARITY CLEAR (CLEAR); COLOR YELLOW (YELLOW); GLUCOSE TRACE (NEGATIVE); KETONE NEGATIVE (NEGATIVE); LEUKO ESTERASE 1+ (NEGATIVE); NITRITE NEGATIVE (NEGATIVE); PH 5.5 (5.0-9.0); UROBILINOGEN 0.2 E.U./dl (0.2-1.0)
[2017-08-01 15:15] LABS: BACTERIA 1+
[2017-08-01 16:14] LABS: PTH INTACT 47.3 pg/mL (14.0-72.0)
== END | disposition home or self-care (01) ==
LOC: LAB 13:23
PROVIDERS: Internal Medicine Nephrology
DX: N18.4 Chronic kidney disease, stage 4 (severe) (principal); N25.81 Secondary hyperparathyroidism of renal origin

== ENCOUNTER → 2017-08-08 | Outpatient (CLI) | payer SELFPAY | END | disposition home or self-care (01) | LOC: CT 11:00 | DX: R91.1 Solitary pulmonary nodule (principal); R06.02 Shortness of breath; I51.7 Cardiomegaly; M40.294 Other kyphosis, thoracic region; J98.11 Atelectasis ==

== ENCOUNTER 2017-08-22 15:16 | Emergency (ER) | payer OTHER, MEDICARE ==
[~2017-08-22] VITALS: Ht 170.1 cm; Wt 122.0 kg
[2017-08-22 16:38] LABS: BASO # 0.1 10*3/uL (0.0-0.1); BASO % 0.5 % (0.0-1.0); EOS # 0.2 10*3/uL (0.0-0.4); HEMATOCRIT 33.6 % (42.0-52.0); HEMOGLOBIN 10.6 g/dl (14.0-18.0); LYMPH # 1.8 10*3/uL (1.3-4.4); LYMPH % 16.3 % (27.0-41.0); MEAN CELL VOLUME 97.4 fl (80.0-94.0); MEAN CORPUSCULAR HGB 30.7 pg (27.0-31.0); MEAN CORPUSCULAR HGB CONC 31.5 g/dl (33.0-37.0); MEAN PLATELET VOLUME 9.7 fl (9.6-12.3); MONO # 0.8 10*3/uL (0.1-1.0); MONO % 7.4 % (3.0-9.0); NEUT % 72.5 % (47.0-73.0); PLATELET COUNT AUTOMATED 202 10*3/uL (130-400); RED BLOOD COUNT 3.45 10*6/uL (4.50-5.90); RED CELL DISTRI WIDTH 13.3 % (0-14.5)
[2017-08-22 16:48] LABS: ACT PARTIAL THROMBO TIME 23.3 SECONDS (20.8-31.5); INTERNATIONAL NORM RATIO 0.9 (2.0-3.5)
[2017-08-22 16:52] LABS: ALBUMIN 3.2 gm/dl (3.1-4.5); ALKALINE PHOSPHATASE 85 U/L (45-117); BUN 61 mg/dl (7-24); CHLORIDE 102 mmol/L (98-107); CREATININE 2.23 mg/dL (0.70-1.30); LIPASE 243 U/L (73-393); MAGNESIUM 1.9 mg/dL (1.5-2.1); POTASSIUM 4.6 mmol/L (3.5-5.1); SGOT/AST 22 IU/L (3-35); SGPT/ALT 61 U/L (12-78); SODIUM 137 mmol/L (136-145); TOTAL PROTEIN 7.9 gm/dL (6.4-8.2); TROPONIN I < 0.015 ng/ml (<0.045)
[2017-08-22] MEDS ORDERED: KEFLEX500 M1 PO (17:17)
== END 2017-08-22 17:29 | disposition home or self-care (01) ==
LOC: ED 15:16
PROVIDERS: Emergency Medicine
DX: L03.116 Cellulitis of left lower limb (principal); L03.115 Cellulitis of right lower limb; I13.0 Hypertensive heart and chronic kidney disease with heart failure and stage 1 through stage 4 chronic kidney disease, or unspecified chronic kidney disease; E11.22 Type 2 diabetes mellitus with diabetic chronic kidney disease; N18.3 Chronic kidney disease, stage 3 (moderate); I50.9 Heart failure, unspecified; E78.5 Hyperlipidemia, unspecified; E66.01 Morbid (severe) obesity due to excess calories; Z86.711 Personal history of pulmonary embolism; Z86.73 Personal history of transient ischemic attack (TIA), and cerebral infarction without residual deficits; Z98.890 Other specified postprocedural states; Z79.82 Long term (current) use of aspirin; Z79.899 Other long term (current) drug therapy

== ENCOUNTER → 2017-10-12 | Outpatient (CLI) | payer MEDICARE ==
[~2017-10-12] MED LIST changes: +KEFLEX500 M1 PO
[2017-10-12 13:17] LABS: BASO # 0.1 10*3/uL (0.0-0.1); BASO % 0.6 % (0.0-1.0); EOS # 0.2 10*3/uL (0.0-0.4); HEMATOCRIT 34.9 % (42.0-52.0); HEMOGLOBIN 10.8 g/dl (14.0-18.0); LYMPH # 1.7 10*3/uL (1.3-4.4); LYMPH % 19.6 % (27.0-41.0); MEAN CELL VOLUME 100.9 fl (80.0-94.0); MEAN CORPUSCULAR HGB 31.2 pg (27.0-31.0); MEAN CORPUSCULAR HGB CONC 30.9 g/dl (33.0-37.0); MEAN PLATELET VOLUME 9.8 fl (9.6-12.3); MONO # 0.7 10*3/uL (0.1-1.0); MONO % 7.7 % (3.0-9.0); NEUT # 5.9 10*3/uL (2.3-7.9); NEUT % 69.2 % (47.0-73.0); PLATELET COUNT AUTOMATED 183 10*3/uL (130-400); RED BLOOD COUNT 3.46 10*6/uL (4.50-5.90); RED CELL DISTRI WIDTH 13.5 % (0-14.5); WHITE BLOOD COUNT 8.5 10*3/uL (4.8-10.8)
[2017-10-12 13:44] LABS: ALBUMIN 3.1 gm/dl (3.1-4.5); CREATININE 2.05 mg/dL (0.70-1.30); PHOSPHOROUS 4.2 mg/dL (2.5-4.9); POTASSIUM 4.7 mmol/L (3.5-5.1); TOTAL PROTEIN 7.5 gm/dL (6.4-8.2)
[2017-10-12 13:53] LABS: THYROID STIM HORMONE (HS) 1.93 uIU/ml (0.358-4.75)
== END | disposition home or self-care (01) ==
LOC: RESCLI 08:28 → LAB 08:28
PROVIDERS: Internal Medicine
DX: I10 Essential (primary) hypertension (principal); R73.09 Other abnormal glucose

== ENCOUNTER → 2017-10-25 | Outpatient (CLI) | payer MEDICARE | LOC: RESCLI 03:55 | DX: I13.0 Hypertensive heart and chronic kidney disease with heart failure and stage 1 through stage 4 chronic kidney disease, or unspecified chronic kidney disease (principal); E11.22 Type 2 diabetes mellitus with diabetic chronic kidney disease; I50.9 Heart failure, unspecified; N18.3 Chronic kidney disease, stage 3 (moderate); I87.2 Venous insufficiency (chronic) (peripheral); L03.115 Cellulitis of right lower limb; E78.2 Mixed hyperlipidemia; N40.1 Benign prostatic hyperplasia with lower urinary tract symptoms; R39.11 Hesitancy of micturition ==

== ENCOUNTER → 2017-11-01 | Outpatient (CLI) | payer MEDICARE | END | disposition home or self-care (01) | LOC: RESCLI 01:07 | DX: I13.0 Hypertensive heart and chronic kidney disease with heart failure and stage 1 through stage 4 chronic kidney disease, or unspecified chronic kidney disease (principal); I50.9 Heart failure, unspecified; E11.22 Type 2 diabetes mellitus with diabetic chronic kidney disease; N18.3 Chronic kidney disease, stage 3 (moderate); I87.2 Venous insufficiency (chronic) (peripheral); L03.115 Cellulitis of right lower limb; E78.2 Mixed hyperlipidemia; N40.1 Benign prostatic hyperplasia with lower urinary tract symptoms; R39.11 Hesitancy of micturition ==

== ENCOUNTER 2017-11-29 14:22 | Emergency (ER) | payer MEDICARE ==
[~2017-11-29] VITALS: Ht 170.1 cm; Wt 126.6 kg
[2017-11-29 15:37] LABS: BASO % 0.5 % (0.0-1.0); EOS # 0.3 10*3/uL (0.0-0.4); EOS % 3.3 % (1.0-4.0); HEMATOCRIT 36.1 % (42.0-52.0); LYMPH # 1.7 10*3/uL (1.3-4.4); LYMPH % 19.5 % (27.0-41.0); MEAN CELL VOLUME 97.3 fl (80.0-94.0); MEAN CORPUSCULAR HGB 29.6 pg (27.0-31.0); MEAN CORPUSCULAR HGB CONC 30.5 g/dl (33.0-37.0); MEAN PLATELET VOLUME 9.6 fl (9.6-12.3); MONO # 0.7 10*3/uL (0.1-1.0); MONO % 8.2 % (3.0-9.0); NEUT # 5.8 10*3/uL (2.3-7.9); NEUT % 67.3 % (47.0-73.0); PLATELET COUNT AUTOMATED 255 10*3/uL (130-400); RED BLOOD COUNT 3.71 10*6/uL (4.50-5.90); RED CELL DISTRI WIDTH 12.5 % (0-14.5); WHITE BLOOD COUNT 8.7 10*3/uL (4.8-10.8)
[2017-11-29 16:06] LABS: ALBUMIN 2.9 gm/dl (3.1-4.5); CREATININE 2.25 mg/dL (0.70-1.30)
[2017-11-29] MEDS ORDERED: AUGMENTIN 500500 M1 PO (17:53)
[2017-11-29] MEDS ORDERED: NORCO 10-325 T1 EACH PO (17:55)
== END 2017-11-29 18:05 | disposition home or self-care (01) ==
LOC: ED 14:22 → EDSTATUS 14:22 → ED 18:05
PROVIDERS: Emergency Medicine
DX: L02.31 Cutaneous abscess of buttock (principal); L98.419 Non-pressure chronic ulcer of buttock with unspecified severity; I13.0 Hypertensive heart and chronic kidney disease with heart failure and stage 1 through stage 4 chronic kidney disease, or unspecified chronic kidney disease; E11.22 Type 2 diabetes mellitus with diabetic chronic kidney disease; N18.3 Chronic kidney disease, stage 3 (moderate); I50.9 Heart failure, unspecified; E78.5 Hyperlipidemia, unspecified; E66.01 Morbid (severe) obesity due to excess calories; Z98.890 Other specified postprocedural states; Z79.899 Other long term (current) drug therapy; Z79.82 Long term (current) use of aspirin

== ENCOUNTER → 2017-12-01 | Outpatient (CLI) | payer SELFPAY ==
[~2017-12-01] MED LIST changes: +AUGMENTIN 500500 M1 PO; +NORCO 10-325 T1 EACH PO
== END | disposition home or self-care (01) ==
LOC: WOUNDCARE 07:55
DX: L02.31 Cutaneous abscess of buttock (principal); E78.5 Hyperlipidemia, unspecified; E11.22 Type 2 diabetes mellitus with diabetic chronic kidney disease; I13.0 Hypertensive heart and chronic kidney disease with heart failure and stage 1 through stage 4 chronic kidney disease, or unspecified chronic kidney disease; N18.3 Chronic kidney disease, stage 3 (moderate); I50.9 Heart failure, unspecified; Z86.711 Personal history of pulmonary embolism; Z86.73 Personal history of transient ischemic attack (TIA), and cerebral infarction without residual deficits

== ENCOUNTER → 2017-12-05 | Outpatient (CLI) | payer SELFPAY ==
[2017-12-05 13:54] LABS: BASO # 0.1 10*3/uL (0.0-0.1); BASO % 0.8 % (0.0-1.0); EOS # 0.2 10*3/uL (0.0-0.4); EOS % 2.2 % (1.0-4.0); HEMATOCRIT 38.3 % (42.0-52.0); HEMOGLOBIN 11.7 g/dl (14.0-18.0); LYMPH # 1.9 10*3/uL (1.3-4.4); LYMPH % 21.4 % (27.0-41.0); MEAN CORPUSCULAR HGB 30.2 pg (27.0-31.0); MEAN CORPUSCULAR HGB CONC 30.5 g/dl (33.0-37.0); MEAN PLATELET VOLUME 9.4 fl (9.6-12.3); MONO # 0.6 10*3/uL (0.1-1.0); MONO % 6.4 % (3.0-9.0); NEUT # 6.1 10*3/uL (2.3-7.9); NEUT % 68.1 % (47.0-73.0); PLATELET COUNT AUTOMATED 266 10*3/uL (130-400); RED BLOOD COUNT 3.87 10*6/uL (4.50-5.90); RED CELL DISTRI WIDTH 12.8 % (0-14.5); WHITE BLOOD COUNT 8.9 10*3/uL (4.8-10.8)
[2017-12-05 14:07] LABS: BILIRUBIN NEGATIVE (NEGATIVE); BLOOD NEGATIVE (NEGATIVE); CLARITY CLEAR (CLEAR); COLOR YELLOW (YELLOW); GLUCOSE 2+ (NEGATIVE); KETONE NEGATIVE (NEGATIVE); LEUKO ESTERASE NEGATIVE (NEGATIVE); NITRITE NEGATIVE (NEGATIVE); SPECIFIC GRAVITY 1.015 (1.005-1.030); UROBILINOGEN 0.2 E.U./dl (0.2-1.0)
[2017-12-05 14:19] LABS: RBC 0-2 rbc/hpf (0-2); WBC 0-2 wbc/hpf (0-5)
[2017-12-05 14:20] LABS: BACTERIA 1+
[2017-12-05 14:25] LABS: CREATININE 2.25 mg/dL (0.70-1.30); PHOSPHOROUS 3.7 mg/dL (2.5-4.9); POTASSIUM 5.1 mmol/L (3.5-5.1)
[2017-12-05 15:20] LABS: VITAMIN D, 25-HYDROXY 13.4 ng/mL (30-100)
[2017-12-05 15:21] LABS: PTH INTACT 165.4 pg/mL (14.0-72.0)
== END | disposition home or self-care (01) ==
LOC: LAB 13:21
PROVIDERS: Internal Medicine Nephrology
DX: N18.4 Chronic kidney disease, stage 4 (severe) (principal); N25.81 Secondary hyperparathyroidism of renal origin

== ENCOUNTER → 2017-12-08 | Outpatient (CLI) | payer MEDICARE | END | disposition home or self-care (01) | LOC: WOUNDCARE 01:42 | DX: S31.819D Unspecified open wound of right buttock, subsequent encounter (principal); K61.0 Anal abscess; E11.22 Type 2 diabetes mellitus with diabetic chronic kidney disease; I13.0 Hypertensive heart and chronic kidney disease with heart failure and stage 1 through stage 4 chronic kidney disease, or unspecified chronic kidney disease; N18.3 Chronic kidney disease, stage 3 (moderate); I50.9 Heart failure, unspecified; E78.5 Hyperlipidemia, unspecified; Z86.73 Personal history of transient ischemic attack (TIA), and cerebral infarction without residual deficits; Z86.711 Personal history of pulmonary embolism; X58.XXXD Exposure to other specified factors, subsequent encounter ==

== ENCOUNTER → 2017-12-15 | Outpatient (CLI) | payer MEDICARE | END | disposition home or self-care (01) | LOC: WOUNDCARE 00:41 | DX: S31.819D Unspecified open wound of right buttock, subsequent encounter (principal); E11.22 Type 2 diabetes mellitus with diabetic chronic kidney disease; I13.0 Hypertensive heart and chronic kidney disease with heart failure and stage 1 through stage 4 chronic kidney disease, or unspecified chronic kidney disease; N18.3 Chronic kidney disease, stage 3 (moderate); I50.9 Heart failure, unspecified; E78.5 Hyperlipidemia, unspecified; Z86.73 Personal history of transient ischemic attack (TIA), and cerebral infarction without residual deficits; Z86.711 Personal history of pulmonary embolism; Z85.828 Personal history of other malignant neoplasm of skin; X58.XXXD Exposure to other specified factors, subsequent encounter ==

== ENCOUNTER → 2018-02-21 | Outpatient (CLI) | payer MEDICARE ==
[2018-02-21 09:54] LABS: BASO % 0.4 % (0.0-1.0); EOS # 0.3 10*3/uL (0.0-0.4); EOS % 2.6 % (1.0-4.0); HEMATOCRIT 38.1 % (42.0-52.0); HEMOGLOBIN 11.7 g/dl (14.0-18.0); MEAN CELL VOLUME 98.2 fl (80.0-94.0); MEAN CORPUSCULAR HGB 30.2 pg (27.0-31.0); MEAN CORPUSCULAR HGB CONC 30.7 g/dl (33.0-37.0); MEAN PLATELET VOLUME 9.3 fl (9.6-12.3); MONO # 0.8 10*3/uL (0.1-1.0); MONO % 7.8 % (3.0-9.0); NEUT # 6.9 10*3/uL (2.3-7.9); NEUT % 68.4 % (47.0-73.0); PLATELET COUNT AUTOMATED 179 10*3/uL (130-400); RED BLOOD COUNT 3.88 10*6/uL (4.50-5.90); RED CELL DISTRI WIDTH 14.2 % (0-14.5)
[2018-02-21 10:09] LABS: ALBUMIN 3.3 gm/dl (3.1-4.5); CREATININE 2.29 mg/dL (0.70-1.30); POTASSIUM 4.5 mmol/L (3.5-5.1); TOTAL PROTEIN 7.7 gm/dL (6.4-8.2)
[2018-02-21 10:10] LABS: FREE T4 0.98 ng/dl (0.76-1.46)
[2018-02-21 10:15] LABS: THYROID STIM HORMONE (HS) 2.23 uIU/ml (0.358-4.75)
== END | disposition home or self-care (01) ==
LOC: RESCLI 06:08
PROVIDERS: Internal Medicine
DX: I13.0 Hypertensive heart and chronic kidney disease with heart failure and stage 1 through stage 4 chronic kidney disease, or unspecified chronic kidney disease (principal); E11.22 Type 2 diabetes mellitus with diabetic chronic kidney disease; N18.3 Chronic kidney disease, stage 3 (moderate); I50.9 Heart failure, unspecified; I87.2 Venous insufficiency (chronic) (peripheral); E78.2 Mixed hyperlipidemia; E78.5 Hyperlipidemia, unspecified; N39.43 Post-void dribbling; N40.1 Benign prostatic hyperplasia with lower urinary tract symptoms; E66.01 Morbid (severe) obesity due to excess calories

== ENCOUNTER → 2018-04-26 | Outpatient (CLI) | payer SELFPAY | END | disposition home or self-care (01) | LOC: RESCLI 01:22 | DX: I13.0 Hypertensive heart and chronic kidney disease with heart failure and stage 1 through stage 4 chronic kidney disease, or unspecified chronic kidney disease (principal); E11.22 Type 2 diabetes mellitus with diabetic chronic kidney disease; N18.3 Chronic kidney disease, stage 3 (moderate); I50.9 Heart failure, unspecified; E66.01 Morbid (severe) obesity due to excess calories; E78.2 Mixed hyperlipidemia; I87.2 Venous insufficiency (chronic) (peripheral); N39.43 Post-void dribbling; N40.1 Benign prostatic hyperplasia with lower urinary tract symptoms ==

== ENCOUNTER → 2018-05-10 | Outpatient (CLI) | payer SELFPAY | LOC: RESCLI 05-09 14:39 | DX: I13.0 Hypertensive heart and chronic kidney disease with heart failure and stage 1 through stage 4 chronic kidney disease, or unspecified chronic kidney disease (principal); E11.22 Type 2 diabetes mellitus with diabetic chronic kidney disease; N18.3 Chronic kidney disease, stage 3 (moderate); I50.9 Heart failure, unspecified; I87.2 Venous insufficiency (chronic) (peripheral); E78.2 Mixed hyperlipidemia; E78.5 Hyperlipidemia, unspecified; E66.01 Morbid (severe) obesity due to excess calories; N39.43 Post-void dribbling; N40.1 Benign prostatic hyperplasia with lower urinary tract symptoms; I63.9 Cerebral infarction, unspecified; E44.0 Moderate protein-calorie malnutrition; L21.9 Seborrheic dermatitis, unspecified; R26.2 Difficulty in walking, not elsewhere classified ==

== ENCOUNTER → 2018-06-22 | Outpatient (CLI) | payer MEDICARE | END | disposition home or self-care (01) | LOC: RESCLI 03:35 | DX: E78.2 Mixed hyperlipidemia (principal); I13.0 Hypertensive heart and chronic kidney disease with heart failure and stage 1 through stage 4 chronic kidney disease, or unspecified chronic kidney disease; E11.22 Type 2 diabetes mellitus with diabetic chronic kidney disease; N18.3 Chronic kidney disease, stage 3 (moderate); I50.9 Heart failure, unspecified; E78.5 Hyperlipidemia, unspecified; I87.2 Venous insufficiency (chronic) (peripheral); N39.43 Post-void dribbling; N40.1 Benign prostatic hyperplasia with lower urinary tract symptoms; E66.01 Morbid (severe) obesity due to excess calories; I63.9 Cerebral infarction, unspecified; R26.2 Difficulty in walking, not elsewhere classified; E44.0 Moderate protein-calorie malnutrition; L21.9 Seborrheic dermatitis, unspecified; Z79.899 Other long term (current) drug therapy ==

== ENCOUNTER 2018-09-21 09:18 | Inpatient (IN) | payer MEDICARE ==
[~2018-09-21] VITALS: Ht 170.1 cm; Wt 136.1 kg
--- NOTE | ~2018-09-21 | EKG ---
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
--- NOTE | ~2018-09-21 | PROC NOTE ---
[place], [place] PROCEDURE NOTE NAME: TONY CANCHOLA UNIT #: [id number] ROOM: [facility] DOCTOR: AUBREY FRANCOIS DO BIRTHDATE: [birth year] DOS: 09/21/2018 PROCEDURE: Endotracheal intubation, rapid sequence. TIME: 1300 hours. INDICATIONS: Respiratory distress. DESCRIPTION OF PROCEDURE: A timeout was completed, verifying correct patient, procedure, site, and positioning of specific equipment. The patient was placed in the flat position. Sedation was obtained using 10 mg of etomidate and 80 mg of Zemuron. The patient was easily ventilated using Ambu bag. The GlideScope was utilized, inserted to the oropharynx, at which time, there was a grade 1 view of the vocal cords. A 7-Bahraini endotracheal tube was inserted under direct visualization using the GlideScope going through the vocal cords. The stylet was removed. Colorimetric change was visualized with the CO2 meter. Breath sounds were heard in both lung brown equally. Endotracheal tube was placed at 25 cm measured at the teeth. Dr. Wu was present for the entire procedure. Chest x-ray was obtained after successful pneumothorax and verification of the endotracheal tube. There was no blood loss. The patient tolerated the procedure well and was sedated with propofol. The patient's O2 pulse oximetry was 100% after the procedure. Solomon Francois DO [facility] DO CM:PROCNOTE:PROCEDURE NOTE 1950 0131 AUBREY FRANCOIS DO
--- NOTE | ~2018-09-21 | CON ---
[place], [place] REPORT OF CONSULTATION NAME: TONY CANCHOLA UNIT #: [id number] ROOM: [facility] DOCTOR: VARSHA GARCIA MD,BOBBY BIRTHDATE: [birth year] DOS: SHORT NOTE CONSULTATION The patient was asked for consultation, but transferred prior to my assessment of the patient to another hospital. BOBBY MADDOX MD CM:CONSTR:REPORT OF CONSULTATION 1144 09/23/18 1447 interface
[2018-09-21 09:29] VITALS: BP 116/56
[2018-09-21 09:54] LABS: BASO % 0.2 % (0.0-1.0); EOS # 0.1 10*3/uL (0.0-0.4); EOS % 1.3 % (1.0-4.0); HEMOGLOBIN 10.6 g/dl (14.0-18.0); LYMPH # 0.8 10*3/uL (1.3-4.4); LYMPH % 13.6 % (27.0-41.0); MEAN CELL VOLUME 100.8 fl (80.0-94.0); MEAN CORPUSCULAR HGB 28.1 pg (27.0-31.0); MEAN CORPUSCULAR HGB CONC 27.9 g/dl (33.0-37.0); MONO # 0.5 10*3/uL (0.1-1.0); MONO % 8.3 % (3.0-9.0); NEUT # 4.7 10*3/uL (2.3-7.9); NEUT % 75.8 % (47.0-73.0); NUCLEATED RED BLOOD CELL 0.1 10*3/uL (0.0-0.0); PLATELET COUNT AUTOMATED 172 10*3/uL (130-400); RED BLOOD COUNT 3.77 10*6/uL (4.50-5.90); RED CELL DISTRI WIDTH 15.6 % (0-14.5); WHITE BLOOD COUNT 6.2 10*3/uL (4.8-10.8)
[2018-09-21 10:11] LABS: ALBUMIN 2.8 gm/dl (3.1-4.5); ALKALINE PHOSPHATASE 120 U/L (45-117); BUN 95 mg/dl (7-24); CHLORIDE 107 mmol/L (98-107); CREATININE 2.82 mg/dL (0.70-1.30); POTASSIUM 4.9 mmol/L (3.5-5.1); SGOT/AST 17 IU/L (3-35); SGPT/ALT 37 U/L (12-78); SODIUM 140 mmol/L (136-145); TOTAL PROTEIN 7.4 gm/dL (6.4-8.2)
[2018-09-21 10:12] LABS: TROPONIN I < 0.015 ng/ml (<0.045)
[2018-09-21 10:59] LABS: BILIRUBIN NEGATIVE (NEGATIVE); BLOOD NEGATIVE (NEGATIVE); CLARITY CLEAR (CLEAR); COLOR YELLOW (YELLOW); GLUCOSE NEGATIVE (NEGATIVE); KETONE NEGATIVE (NEGATIVE); LEUKO ESTERASE NEGATIVE (NEGATIVE); NITRITE NEGATIVE (NEGATIVE); PH 5.5 (5.0-9.0); SPECIFIC GRAVITY 1.025 (1.005-1.030); UROBILINOGEN 0.2 E.U./dl (0.2-1.0)
[2018-09-21 11:00] VITALS: BP 103/59
[2018-09-21 11:11] LABS: BACTERIA 2+; HYALINE CAST TNTC; WBC 0-2 wbc/hpf (0-5)
[2018-09-21 11:52] VITALS: BP 92/38
[2018-09-21 12:35] VITALS: BP 60/0
[2018-09-21 13:20] LABS: ABG HCO3 23.8 mmol/l (22-26); ABG O2 SATURATION 98.9 % (95-97)
[2018-09-21 13:23] LABS: ABG BASE EXCESS -6.9 mmol/L (-2.0-2.0)
[2018-09-21 13:25] LABS: ARTERIAL BLOOD GAS PCO2 80.8 mmHg (35-45); ARTERIAL BLOOD GAS PH 7.097 (7.35-7.45)
[2018-09-21 14:35] LABS: ABG BASE EXCESS -5.4 mmol/L (-2.0-2.0); ABG HCO3 21.9 mmol/l (22-26); ABG O2 SATURATION 98.1 % (95-97); ARTERIAL BLOOD GAS PCO2 48.2 mmHg (35-45); ARTERIAL BLOOD GAS PH 7.263 (7.35-7.45); ARTERIAL BLOOD GAS PO2 95.8 mmHg (80-90)
[2018-09-21 15:08] LABS: ACT PARTIAL THROMBO TIME 29.7 SECONDS (20.8-31.5); INTERNATIONAL NORM RATIO 1.1 (2.0-3.5)
[2018-09-21 15:14] LABS: PHOSPHOROUS 6.4 mg/dL (2.5-4.9)
[2018-09-21 15:28] LABS: TROPONIN I < 0.015 ng/ml (<0.045)
[2018-09-21 16:00] VITALS: BP 123/57
== END 2018-09-21 19:50 | disposition short-term general hospital (02) | DRG 208 ==
LOC: ED 09:18 → ICCU 11:05 → EDHOLD 11:05 → ICCU 11:14
PROVIDERS: Emergency Medicine; Family Medicine; Internal Medicine
PROC: 5A1935Z Respiratory Ventilation, Less than 24 Consecutive Hours (ICD-10-PCS; principal; 2018-09-21)
PROC: 02HV33Z Insertion of Infusion Device into Superior Vena Cava, Percutaneous Approach (ICD-10-PCS; principal; 2018-09-21)
PROC: 0BH17EZ Insertion of Endotracheal Airway into Trachea, Via Natural or Artificial Opening (ICD-10-PCS; principal; 2018-09-21)
PROC: B548ZZA Ultrasonography of Superior Vena Cava, Guidance (ICD-10-PCS; principal; 2018-09-21)
DX: J96.21 Acute and chronic respiratory failure with hypoxia (principal); N17.0 Acute kidney failure with tubular necrosis; I63.9 Cerebral infarction, unspecified; L03.115 Cellulitis of right lower limb; J44.1 Chronic obstructive pulmonary disease with (acute) exacerbation; N39.0 Urinary tract infection, site not specified; I13.0 Hypertensive heart and chronic kidney disease with heart failure and stage 1 through stage 4 chronic kidney disease, or unspecified chronic kidney disease; N18.4 Chronic kidney disease, stage 4 (severe); Z68.42 Body mass index [BMI] 45.0-49.9, adult; J96.22 Acute and chronic respiratory failure with hypercapnia; I95.9 Hypotension, unspecified; E11.22 Type 2 diabetes mellitus with diabetic chronic kidney disease; E78.5 Hyperlipidemia, unspecified; E66.01 Morbid (severe) obesity due to excess calories; E11.65 Type 2 diabetes mellitus with hyperglycemia; D53.9 Nutritional anemia, unspecified; D72.810 Lymphocytopenia; N40.1 Benign prostatic hyperplasia with lower urinary tract symptoms; I87.8 Other specified disorders of veins; R33.9 Retention of urine, unspecified; E83.51 Hypocalcemia; E83.39 Other disorders of phosphorus metabolism; N32.0 Bladder-neck obstruction; E11.40 Type 2 diabetes mellitus with diabetic neuropathy, unspecified; Z79.82 Long term (current) use of aspirin; Z82.49 Family history of ischemic heart disease and other diseases of the circulatory system; Z83.3 Family history of diabetes mellitus; Z79.2 Long term (current) use of antibiotics; Z79.1 Long term (current) use of non-steroidal anti-inflammatories (NSAID); Z79.899 Other long term (current) drug therapy; I50.9 Heart failure, unspecified

== ENCOUNTER → 2018-09-21 | Outpatient (CLI) | payer MEDICARE | END | disposition home or self-care (01) | LOC: RESCLI 03:25 | DX: I96 Gangrene, not elsewhere classified (principal); R06.02 Shortness of breath; R26.2 Difficulty in walking, not elsewhere classified; R34 Anuria and oliguria; I10 Essential (primary) hypertension; E11.9 Type 2 diabetes mellitus without complications; Z86.73 Personal history of transient ischemic attack (TIA), and cerebral infarction without residual deficits; Z79.899 Other long term (current) drug therapy ==

== ENCOUNTER → 2018-11-01 | Outpatient (CLI) | payer MEDICARE ==
[2018-11-01 16:50] LABS: HEMOGLOBIN 10.1 g/dl (14.0-18.0); MEAN CELL VOLUME 98.6 fl (80.0-94.0); MEAN CORPUSCULAR HGB 29.3 pg (27.0-31.0); MEAN CORPUSCULAR HGB CONC 29.7 g/dl (33.0-37.0); MEAN PLATELET VOLUME 8.4 fl (9.6-12.3); PLATELET COUNT AUTOMATED 454 10*3/uL (130-400); RED BLOOD COUNT 3.45 10*6/uL (4.50-5.90); RED CELL DISTRI WIDTH 15.8 % (0-14.5)
[2018-11-01 17:23] LABS: PLATELET SUFFICIENCY NORMAL (NORMAL); TOTAL CELLS COUNTED 100 #CELLS
== END | disposition home or self-care (01) ==
LOC: RESCLI 08:45
PROVIDERS: Internal Medicine
DX: I13.0 Hypertensive heart and chronic kidney disease with heart failure and stage 1 through stage 4 chronic kidney disease, or unspecified chronic kidney disease (principal); E11.22 Type 2 diabetes mellitus with diabetic chronic kidney disease; N18.3 Chronic kidney disease, stage 3 (moderate); I50.30 Unspecified diastolic (congestive) heart failure; K92.2 Gastrointestinal hemorrhage, unspecified; N39.0 Urinary tract infection, site not specified; R05 Cough; E78.5 Hyperlipidemia, unspecified; E66.01 Morbid (severe) obesity due to excess calories; N40.1 Benign prostatic hyperplasia with lower urinary tract symptoms; I63.9 Cerebral infarction, unspecified; E04.1 Nontoxic single thyroid nodule; I25.118 Atherosclerotic heart disease of native coronary artery with other forms of angina pectoris; Z79.899 Other long term (current) drug therapy; Z88.8 Allergy status to other drugs, medicaments and biological substances

== ENCOUNTER → 2018-11-08 | Outpatient (CLI) | payer MEDICARE ==
[~2018-11-08] MED LIST changes: +ACTOS15 M1 PO; +ANORO ELLIPTA1 EACH INH; +ASPIRIN81 M1 PO; +CARVEDILOL6.25 MG PO; +CEFTRIAXONE1 GM IV; +CIPRO500 MG PO; +COREG6.25 MG PO; +ERGOCAL2500 UNIT PO; +FERROUSAL325 MG PO; +GABAPENTIN100 M2 PO; +GLUCOTROL10 MG PO; +IMDUR SA30 MG PO; +IRON325 M1 PO; +Ipratropium Brom3 ML INH; +KLOR-CON 1010 ME1 PO; +LEVEMIR100 UNIT/1 SC; +LEVOTHYROXINE50 MCG PO; +METOLAZONE2.5 MG PO; +NEURONTIN100 MG PO; +NOVOLOG FL100 UNIT/1 SQ; +NYSTOP60 GM T; +NYSTOP60 GM TP; +PROSCAR5 M1 PO; +PROTONIX40 MG PO; +SENOKOT PO; +VITAMIN D50000 UNIT PO
== END | disposition home or self-care (01) ==
DX: E04.1 Nontoxic single thyroid nodule (principal); R05 Cough; M79.89 Other specified soft tissue disorders

== ENCOUNTER 2018-11-22 | Inpatient (IN) | payer MEDICARE ==
[~2018-11-22] MED LIST changes: -ACTOS15 M1 PO; -ANORO ELLIPTA1 EACH INH; -ASPIRIN81 M1 PO; -CARVEDILOL6.25 MG PO; -CEFTRIAXONE1 GM IV; -CIPRO500 MG PO; -COREG6.25 MG PO; -ERGOCAL2500 UNIT PO; -FERROUSAL325 MG PO; -GABAPENTIN100 M2 PO; -GLUCOTROL10 MG PO; -IMDUR SA30 MG PO; -IRON325 M1 PO; -Ipratropium Brom3 ML INH; -KLOR-CON 1010 ME1 PO; -LEVEMIR100 UNIT/1 SC; -LEVOTHYROXINE50 MCG PO; -METOLAZONE2.5 MG PO; -NEURONTIN100 MG PO; -NOVOLOG FL100 UNIT/1 SQ; -NYSTOP60 GM T; -NYSTOP60 GM TP; -PROSCAR5 M1 PO; -PROTONIX40 MG PO; -SENOKOT PO; -VITAMIN D50000 UNIT PO
--- NOTE | ~2018-11-22 | EKG ---
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
--- NOTE | ~2018-11-22 | CON ---
[place], [place] REPORT OF CONSULTATION [id number] UNIT #: [id number] ROOM: 422 DOCTOR: BOBBY DINH MD BIRTHDATE: [birth year] DOS: 11/23/2018 PULMONARY CONSULTATION, EVALUATION, AND MANAGEMENT CONSULTATION REQUESTED BY: Hospitalist services. REASON FOR CONSULTATION: To assess the patient for symptoms of shortness of breath and respiratory failure. HISTORY OF PRESENT ILLNESS: This is a 67-year-old white male patient with multiple medical problems, known in the past. The patient has been admitted to the [facility] and then transferred to [facility] for possibility of a stroke, the stroke was excluded. The patient's hospital course was complicated with the GI bleeding with esophageal ulcer. From the [facility], the patient treated [facility] a [facility] and then subsequently home discharge. He presented to the hospital as the patient was noted with progressive increased symptoms of shortness of breath occurring with general weakness, fatigue, and inability to ambulate. He has been admitted to the hospital. The patient came to the Emergency Room by the ambulance for further assessment. He was still complaining of some symptoms of shortness of breath. He denies any coughing, wheezing, or any chest pain. He denies any pain of the lower extremities. PAST MEDICAL HISTORY: Reported for: 1. History of chronic kidney disease, stage 3 with past acute kidney injury, which resolved on the last hospitalization: 2. The patient with type 2 diabetes mellitus. 3. Dyslipidemia. 4. Essential hypertension. 5. Morbid obesity. 6. History of pulmonary embolism. 7. Congestive heart failure with diastolic dysfunction. 8. Essential hypertension. PAST SURGICAL HISTORY: 1. Prostate biopsy. 2. EGD. 3. Removal of skin cancer. 4. Banding of esophageal varices in 09/2018. HOME MEDICATIONS: Listed use of aspirin, Bumex, Coreg, enalapril, vitamin D, ferrous sulfate, finasteride, glipizide, Levemir insulin, Imdur, levothyroxine, Protonix, simvastatin, Flomax, and Anoro Ellipta. CURRENT MEDICATIONS: Administered noted use of Lantus insulin, finasteride, aspirin, Imdur, Flomax, levothyroxine, Coreg, simvastatin, heparin DVT prophylaxis, Protonix, ferrous sulfate, DuoNeb, Hytrin, IV vancomycin, Zosyn, and other p.r.n. medications. DRUG ALLERGIES: Reported as no known drug allergies. [place], [place] REPORT OF CONSULTATION NAME: TONY CANCHOLA UNIT #: [id number] ROOM: 422 DOCTOR: VARSHA GARCIA MD,BOBBY BIRTHDATE: [birth year] SOCIAL HISTORY: The patient was noted nonsmoker lifetime. No history of alcohol use or illicit drug use. FAMILY HISTORY: The patient's father with complications of myocardial infarction. Mother with complications of cancer with history of diabetes. REVIEW OF SYSTEMS: CONSTITUTIONAL SYMPTOMS: Fatigue and tiredness reported. Denies symptoms of fever or chills. EYES: Denies burning, redness, or tenderness. EARS, NOSE, AND THROAT SYMPTOMS: No sore throat, hoarseness, otalgia, postnasal drainage, or epistaxis. CARDIOVASCULAR SYSTEM: Denies angina pain, syncopal episodes, or pain of the lower extremity. GASTROINTESTINAL SYMPTOMS: The patient reported with watery diarrhea with emesis, dry heave intermittently prior to admission to the hospital. There were no symptoms of hematemesis, melena, or hematochezia reported. GENITOURINARY SYMPTOMS: No dysuria, suprapubic pain, hematuria, or flank pain. Denies any urinary incontinence. MUSCULOSKELETAL SYMPTOMS: No acute joint pain, redness, or tenderness. SKIN: Denies abnormal lesions or rashes. CENTRAL NERVOUS SYSTEM: No dizziness, headache, diplopia, or syncopal episodes. Remaining systems were reviewed and they were noted all negative. PHYSICAL EXAMINATION: GENERAL: This is a 67-year-old white male, who has been noted currently awake and alert without any acute distress this morning of assessment using oxygen supplementation by nasal cannula. VITAL SIGNS: Height of 5 feet 7 inches, weight of 205 pounds, and BMI of 47.2. The patient's temperature is 100.5 degree Fahrenheit noted on admission, currently noted afebrile, respiratory rate ranges between 20 and 25, heart rate of 111 on admission, currently 76; blood pressure is 135/71-134/52, pulse oxygen saturation recorded on 2 liters nasal cannula is 93% saturation. Pulse ox saturation recorded in the 70 at home per EMS records reviewed. HEENT: Examination shows head was atraumatic. Severe decreased posterior pharyngeal space with high tongue base and crowding of soft tissue structures. CARDIOVASCULAR SYSTEM: S1, S2 is audible. LUNGS: The patient was noted with [id number] decreased breath sounds in the lungs bilaterally. EXTREMITIES: Noted mild edema. VISIBLE SKIN: No lesions or rashes. CENTRAL NERVOUS SYSTEM: The patient's cranial nerves 2-12 intact without any focal deficit. LABORATORY DATA: CBC on 11/22/2018 admission, WBC count is 14.2, hemoglobin is 10.8, and platelet count is normal. CMP of the patient on 11/22/2018, BUN is 75, creatinine is 2.60, glucose is 366, and potassium is elevated at 5.6. Troponin is normal. Venous blood gas, pH of 7.34 yesterday recorded. Lactic acid is 2.9 on admission, follow 1.5. Troponin additional 2 sets yesterday were [place], [place] REPORT OF CONSULTATION NAME: TONY CANCHOLA UNIT #: [id number] ROOM: [facility] DOCTOR: VARSHA GARCIA MD,[facility] BIRTHDATE: [birth year] noted as normal. ESR elevated at 90. CRP elevated at 7.98. PT and PTT this morning normal. CMP of the patient this morning, BUN is 72, creatinine is 2.37, glucose is 375, and the sodium is 135. CBC of the patient this morning, WBC count is normal, hemoglobin is 9.2, and platelet count remains normal. DIAGNOSTIC DATA: Ultrasound of bilateral lower extremity does not show any evidence of deep venous thrombosis in the extremities. The echocardiogram was completed yesterday assessed by Radiology Service, left ventricle ejection fraction noted about 60%. IMAGING DATA: The one view chest x-ray that was done on 11/22/2018 was reviewed and noted as cardiomegaly with hyperinflation of the lungs and was rotated towards the right without any visible gross pleural fluid or pulmonary infiltration. There were no findings of acute congestive heart failure. IMPRESSION: 1. The patient has been currently admitted to the hospital with acute hypoxemic respiratory failure at this time, exact etiology unable to be determined more accurately. Possible consideration would be considered for bronchial asthma. There was no evidence of infection so far known for the patient, but the patient has been receiving broad-spectrum intravenous antibiotic at this time empirically. 2. Mild lactic acidosis, which has resolved. Lactic acidosis may be resulting from hypoxemia. 3. The patient with chronic obesity history as well with multiple other medical problems as listed. 4. History of congestive heart failure with diastolic dysfunction. 5. Longstanding type 2 diabetes mellitus. 6. Strong consideration for possibility of an obstructive sleep apnea disorder. 7. History of past pulmonary embolism, not receiving any anticoagulation, long-term. 8. The patient with acute on chronic kidney injury secondary to intravascular volume depletion, prerenal azotemia would be very likely. PLAN OF TREATMENT: Monitor culture results. Discontinue antibiotics if the culture results will be noted negative in the next 24 hours. Obtain a chest x-ray, PA and lateral view today to exclude any underlying occult infiltration or other additional abnormalities explaining his hypoxia. Bronchodilators at this time will be continued. Addition of steroids in case of wheezing develops. Usual care, other supportive therapy, plan of management, and outpatient assessment will be recommended for the possibilities strongly for obstructive sleep apnea disorder. Usual care, other supportive therapy, plan of management as well, and treatment modification according to the progression of the illness and new data availability. Deep venous thrombosis prophylaxis will be done for close monitoring for any bleeding because of past history of recent GI bleeding couple of months ago. Thanks for allowing me to participate in the care of this patient. [place], [place] REPORT OF CONSULTATION NAME: TONY CANCHOLA UNIT #: [id number] ROOM: 422 DOCTOR: BOBBY DINH MD BIRTHDATE: [birth year] BOBBY MADDOX MD CM:CONSTR:REPORT OF CONSULTATION 1537 11/24/18 0324 interface
--- NOTE | ~2018-11-22 | EKG ---
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
--- NOTE | ~2018-11-22 | PR ---
[place], [place] PROGRESS NOTE NAME: TONY CANCHOLA UNIT #: [id number] ROOM: 422 DOCTOR: VARSHA GARCIA MD,BOBBY BIRTHDATE: [birth year] DOS: 11/25/2018 SUBJECTIVE: The patient remains comfortable at this time. Denies any acute shortness of breath. Denies symptoms of chest pain, fever or chills. He denies symptoms of hemoptysis. OBJECTIVE: VITAL SIGNS: Which have been recorded showed normal temperature, respiratory rate 20, heart rate 77, blood pressure 129/59, pulse oxygen saturation on 2 liters nasal canula is 94% saturation. HEENT: No new change. NECK: Supple. CARDIOVASCULAR: S1, S2 is audible. LUNGS: Noted without any wheezing or crackles. ABDOMEN: Soft, nontender. Bowel sounds present. EXTREMITIES: No new changes. Edema of the lower extremities has been slightly resolving. IMPRESSION: 1. Resolving acute hypoxemic respiratory failure with bronchial asthma. 2. Congestive heart failure. Edema of the lower extremities. 3. Suspected obstructive sleep apnea disorder. PLAN OF MANAGEMENT: No change in pulmonary standpoint. Continue to maximize the other medical illnesses management. Usual care, other supportive therapy, plan of management. Usual care. BOBBY MADDOX MD CM:PNTRANS 1415 1733 BOBBY GARCIA MD 11/25/18 1731 interface
--- NOTE | ~2018-11-22 | EKG ---
[place], [place] ELECTROCARDIOGRAM REPORT NAME: TONY CANCHOLA UNIT #: [id number] ROOM: 422 DOCTOR: EPIPHANY DRAFT REPORT BIRTHDATE: [birth year] [facility] Test Date: 2018-11-22 Test Time: 12:19:03 Pat Name: TONY CANCHOLA Department: Room: 422 Gender: M Regional Director: Estefania Beth : 1950 Requested By: STEVEN QUIGLEY Order Number: [id number] Reading MD: Dimitri Garcia MD Measurements Intervals [place] Rate: 85 P: 41 [place]: 168 QRS: 17 QRSD: 103 T: 90 QT: 367 QTc: 437 Interpretive Statements Sinus rhythm Borderline abnrm T, anterolateral leads Baseline wander in lead(s) V1,V2 No change from earlier ECG this date Electronically Signed On 11-23-2018 18:09:43 PST by Dimitri Garcia MD CM:EKGRPT:ELECTROCARDIOGRAM REPORT 1219 1809 STEVEN QUIGLEY MD EPIPHANY DRAFT REPORT STEVEN QUIGLEY MD
--- NOTE | ~2018-11-22 | PR ---
[place], [place] PROGRESS NOTE NAME: TONY CANCHOLA UNIT #: [id number] ROOM: 422 DOCTOR: BOBBY DINH MD BIRTHDATE: [birth year] DOS: 11/24/2018 SUBJECTIVE: The patient has been noted comfortable this morning, resting on the bed. Denies symptoms of chest pain. Shortness of breath has been noted decreased. There were no symptoms of cough, wheezing or hemoptysis reported by the patient. Denies pain of the lower extremities. The oxygen supplementation continued. OBJECTIVE: VITAL SIGNS: this morning as a normal temperature, respiratory rate 18, heart rate of 65, blood pressure 118/64. Pulse oxygen saturation on 2 liters nasal cannula 97% saturation. HEENT: Examination shows head was atraumatic. Eyes nonicterus. NECK: Supple. CARDIOVASCULAR: S1, S2 is audible. LUNGS: Without any wheeze or crackles. ABDOMEN: Soft and nontender. Bowel sounds present. EXTREMITIES: The patient was noted with chronic obesity. IMPRESSION: 1. The patient with improving acute hypoxemic respiratory failure. 2. Suspected obstructive sleep apnea disorder, not diagnosed or treated at this time and refusal of assessment and management previously. 3. The patient with acute on chronic kidney injury as well with elevation of BUN and creatinine. Today's BUN and creatinine was noted as BUN 72, creatinine 2.43. 4. The patient with chronic morbid obesity. PLAN OF MANAGEMENT: Continuation of bronchodilators, oxygen supplementation. Discussion was done again for the need of assessment of the sleep apnea disorder. Plan of management to be done as an outpatient. The patient was agreeable for outpatient assessment in the office to have further discussion about the sleep apnea disorder. [place], [place] PROGRESS NOTE NAME: TONY CANCHOLA UNIT #: [id number] ROOM: 422 DOCTOR: BOBBY DINH MD BIRTHDATE: [birth year] BOBBY MADDOX MD CM:PNTRANS 1415 1558 BOBBY GARCIA MD 11/24/18 1556 interface
[2018-11-22 05:30] VITALS: BP 134/52
--- NOTE | 2018-11-22 05:50 | NUR ---
PATIENT ATTEMPTED URINE SAMPLE UNABLE
[2018-11-22 05:57] LABS: HEMOGLOBIN 10.8 g/dl (14.0-18.0); MEAN CORPUSCULAR HGB 30.3 pg (27.0-31.0); MEAN CORPUSCULAR HGB CONC 30.9 g/dl (33.0-37.0); MEAN PLATELET VOLUME 9.7 fl (9.6-12.3); PLATELET COUNT AUTOMATED 255 10*3/uL (130-400); RED BLOOD COUNT 3.57 10*6/uL (4.50-5.90); RED CELL DISTRI WIDTH 15.4 % (0-14.5); WHITE BLOOD COUNT 14.2 10*3/uL (4.8-10.8)
--- NOTE | 2018-11-22 06:01 | NUR ---
LA 2.[address] CARR
[2018-11-22 06:15] VITALS: BP 104/54
[2018-11-22 06:23] LABS: ALBUMIN 2.6 gm/dl (3.1-4.5); ALKALINE PHOSPHATASE 84 U/L (45-117); BUN 75 mg/dl (7-24); CHLORIDE 104 mmol/L (98-107); LIPASE 305 U/L (73-393); POTASSIUM 5.8 mmol/L (3.5-5.1); SGOT/AST 17 IU/L (3-35); SGPT/ALT 23 U/L (12-78); SODIUM 136 mmol/L (136-145); TOTAL PROTEIN 7.4 gm/dL (6.4-8.2)
[2018-11-22 06:24] LABS: PLATELET SUFFICIENCY NORMAL (NORMAL); TOTAL CELLS COUNTED 100 #CELLS; VACUOLATION OF NEUTROPHILS SLIGHT
[2018-11-22 06:35] LABS: TROPONIN I < 0.015 ng/ml (<0.045)
--- NOTE | 2018-11-22 07:26 | NUR ---
INCONTINENT OF LARGE AMOUNT OF LIQUID STOOL. CLEANED AND LINENS CHANGED.
[2018-11-22 07:45] LABS: BILIRUBIN NEGATIVE (NEGATIVE); BLOOD 2+ (NEGATIVE); CLARITY CLOUDY (CLEAR); COLOR YELLOW (YELLOW); GLUCOSE 1+ (NEGATIVE); KETONE NEGATIVE (NEGATIVE); LEUKO ESTERASE 2+ (NEGATIVE); NITRITE NEGATIVE (NEGATIVE); PH 5.5 (5.0-9.0); SPECIFIC GRAVITY 1.025 (1.005-1.030); UROBILINOGEN 0.2 E.U./dl (0.2-1.0)
[2018-11-22] MEDS ORDERED: FERROUSAL325 MG PO (07:45)
[2018-11-22] MEDS ORDERED: FLOMAX0.4 MG PO (07:45)
[2018-11-22] MEDS ORDERED: ASPIRIN81 M1 PO (07:45)
[2018-11-22] MEDS ORDERED: IMDUR SA30 MG PO (07:45)
[2018-11-22] MEDS ORDERED: PROTONIX40 MG PO (07:46)
[2018-11-22] MEDS ORDERED: SENOKOT PO (07:46)
[2018-11-22] MEDS ORDERED: BUMETANIDE1 MG PO (07:46)
[2018-11-22] MEDS ORDERED: LEVEMIR100 UNIT/1 SC (07:47)
[2018-11-22] MEDS ORDERED: LEVOTHYROXINE50 MCG PO (07:47)
[2018-11-22] MEDS ORDERED: ERGOCAL2500 UNIT PO (07:48)
[2018-11-22] MEDS ORDERED: PROSCAR5 M1 PO (07:48)
[2018-11-22] MEDS ORDERED: CARVEDILOL6.25 MG PO (07:49)
[2018-11-22 08:11] LABS: VENOUS BLOOD GAS O2 SAT 97.4 % (40-85); VENOUS PH 7.348 (7.32-7.43)
[2018-11-22 08:26] LABS: BACTERIA 4+; RBC 21-30 rbc/hpf (0-2); WBC TNTC wbc/hpf (0-5)
[2018-11-22 09:14] VITALS: BP 128/46
--- NOTE | 2018-11-22 09:15 | NUR ---
Time: 914 A 67 year old MALE admitted to 4E under services of ARIANE HASTINGS DO. Pt. arrived via stretcher from ER. Chief complaint: DIARRHEA X 2 DAYS. RUIZ CHRISTIANSON
[2018-11-22] MEDS ORDERED: GLUCOTROL10 MG PO (10:53)
[2018-11-22] MEDS ORDERED: SIMVASTATIN20 MG PO (10:53)
[2018-11-22] MEDS ORDERED: NOVOLOG FL100 UNIT/1 SQ (10:54)
[2018-11-22] MEDS ORDERED: COREG6.25 MG PO (10:55)
[2018-11-22] MEDS ORDERED: ENALAPRIL MALEA10 MG PO (10:56)
[2018-11-22] MEDS ORDERED: ANORO ELLIPTA1 EACH INH (10:59)
[2018-11-22 12:00] VITALS: BP 162/48
[2018-11-22 16:00] VITALS: BP 132/59
--- NOTE | 2018-11-22 18:21 | NUR ---
PT RETURNED FROM ULTRASOUND.
--- NOTE | 2018-11-22 19:00 | NUR ---
PT AWAKE IN BED DURING BEDISDE SHIFT REPORT. FAMILY AT BEDSIDE. CALL LIGHT IN REACH.
[2018-11-22 20:00] VITALS: BP 135/71
[2018-11-23] VITALS: BP 135/71
--- NOTE | 2018-11-23 | NUR ---
DR. WHITE NOTIFIED OF PT SCROTUM RED/EXCORIATED AND PT DIFF BREATHING W/ANASARCA AND HX CHF. REQUESTING IVF BE D/C'D. TO COME SEE PT.
--- NOTE | 2018-11-23 03:21 | NUR ---
Dressing changed, no drainage. Cleansed w/betadine and bandaid applied. No redness or edema noted. KAREN ANN
[2018-11-23 05:52] LABS: HEMATOCRIT 31.1 % (42.0-52.0); HEMOGLOBIN 9.2 g/dl (14.0-18.0); MEAN CORPUSCULAR HGB 29.6 pg (27.0-31.0); MEAN CORPUSCULAR HGB CONC 29.6 g/dl (33.0-37.0); MEAN PLATELET VOLUME 9.7 fl (9.6-12.3); PLATELET COUNT AUTOMATED 212 10*3/uL (130-400); RED BLOOD COUNT 3.11 10*6/uL (4.50-5.90); RED CELL DISTRI WIDTH 15.3 % (0-14.5); WHITE BLOOD COUNT 9.8 10*3/uL (4.8-10.8)
[2018-11-23 06:05] LABS: ALBUMIN 2.2 gm/dl (3.1-4.5); CREATININE 2.37 mg/dL (0.70-1.30); FREE T4 0.94 ng/dl (0.76-1.46); PHOSPHOROUS 4.5 mg/dL (2.5-4.9); TOTAL PROTEIN 6.9 gm/dL (6.4-8.2)
[2018-11-23 06:10] LABS: THYROID STIM HORMONE (HS) 0.608 uIU/ml (0.358-4.75)
[2018-11-23 06:11] LABS: ACT PARTIAL THROMBO TIME 25.9 SECONDS (20.8-31.5); INTERNATIONAL NORM RATIO 1.1 (2.0-3.5)
[2018-11-23 06:41] LABS: TOTAL CELLS COUNTED 100 #CELLS
[2018-11-23 06:42] LABS: PLATELET SUFFICIENCY NORMAL (NORMAL); POLYCHROMASIA SLIGHT
[2018-11-23 08:00] VITALS: BP 138/64
--- NOTE | 2018-11-23 08:11 | NUR ---
PATIENT TAKEN OFF FLOOR VIA CART FOR SCHEDULED U/S.
[2018-11-23 08:55] LABS: VITAMIN D, 25-HYDROXY 31.5 ng/mL (30-100)
--- NOTE | 2018-11-23 09:00 | NUR ---
case management attempted to visit with patient, patient was out of room at this time
--- NOTE | 2018-11-23 09:11 | NUR ---
IN TO SEE PATIENT.
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
--- NOTE | 2018-11-23 10:37 | NUR ---
IN TO SEE PATIENT.
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
[2018-11-23 12:00] VITALS: BP 133/63
--- NOTE | 2018-11-23 13:56 | NUR ---
Spoke with Dr. Dean is regards to wound care recommendations. He stated that it was okay to remove the tubigrips. and that he will put the consult in from Dr. Hernandez tomorrow regarding his arterial studies.
--- NOTE | 2018-11-23 14:59 | NUR ---
Patient stated that the physician that was into see his toe wound stated to follow up in the clinic next to breana bocanegra to continue care upon discharge.
--- NOTE | 2018-11-23 15:44 | NUR ---
Nursing screen received and chart review completed. Patient has multiple medical issues with recent diarrhea with any movement. He is not appropriated for Occupational Therapy at this time. Consider OT eval when stable for d/c planning. Kacy Miller OTR/l
[2018-11-23 16:00] VITALS: BP 131/63
--- NOTE | 2018-11-23 16:23 | NUR ---
STOOL SENT FOR C-DIFF SPECIMEN PER ORDER.
[2018-11-23 20:00] VITALS: BP 112/49
--- NOTE | 2018-11-23 20:47 | NUR ---
PT AWAKE. BEDSIDE REPORT RECIEVED FROM ALEXANDR IVERSON. PT STATES HE IS HAVING NO PAIN AND NO OTHER COMPLAINTS AT THIS TIME. CALL LIGHT WITHIN REACH.
--- NOTE | 2018-11-23 20:48 | NUR ---
24 HR CHART CHECK COMPLETE.
[2018-11-24] VITALS: BP 107/53
[2018-11-24 07:09] LABS: CREATININE 2.43 mg/dL (0.70-1.30); PHOSPHOROUS 4.6 mg/dL (2.5-4.9); POTASSIUM 4.9 mmol/L (3.5-5.1)
[2018-11-24 07:51] LABS: BASO % 0.2 % (0.0-1.0); EOS # 0.1 10*3/uL (0.0-0.4); EOS % 0.4 % (1.0-4.0); HEMATOCRIT 30.8 % (42.0-52.0); HEMOGLOBIN 9.2 g/dl (14.0-18.0); LYMPH # 0.8 10*3/uL (1.3-4.4); LYMPH % 6.9 % (27.0-41.0); MEAN CORPUSCULAR HGB 30.2 pg (27.0-31.0); MEAN CORPUSCULAR HGB CONC 29.9 g/dl (33.0-37.0); MEAN PLATELET VOLUME 9.7 fl (9.6-12.3); MONO % 8.2 % (3.0-9.0); NEUT # 10.2 10*3/uL (2.3-7.9); PLATELET COUNT AUTOMATED 226 10*3/uL (130-400); RED BLOOD COUNT 3.05 10*6/uL (4.50-5.90); RED CELL DISTRI WIDTH 15.4 % (0-14.5); WHITE BLOOD COUNT 12.3 10*3/uL (4.8-10.8)
[2018-11-24 08:49] VITALS: BP 118/64
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
--- NOTE | 2018-11-24 11:42 | NUR ---
WOUND CARE TO RT FOOT COMPLETED.
[2018-11-24 12:00] VITALS: BP 110/61
--- NOTE | 2018-11-24 14:05 | NUR ---
Patient referral faxed to [facility] for short term rehab, will fax physical therapy eval when available. waiting on review/acceptance.
--- NOTE | 2018-11-24 14:54 | NUR ---
PT DOWN FOR MRI.
--- NOTE | 2018-11-24 15:32 | NUR ---
referral was made to [facility], they have accepted patient and he can go whenever he is medically stable
--- NOTE | 2018-11-24 15:46 | NUR ---
PT BACK FROM MRI
[2018-11-24 16:00] VITALS: BP 133/67
--- NOTE | 2018-11-24 19:45 | NUR ---
PT RESTIN GIN BED WITH VISITORS AT HIS SIDE. RESP-EASY AND REGULAR AT THIS TIME. OXYGEN IN USE. TOLERATED ROUTINE IV MED WITH NO PROBLEM. CALL LIGHT IN REACH. SEE SHIFT ASSESSMENT.
[2018-11-24 20:00] VITALS: BP 122/60
--- NOTE | 2018-11-24 22:15 | NUR ---
PT TOLERATED ROUTINE MED WITH NO PROBLEM. BSG-278, SEE EMAR. NO C/O AT THIS TIME. CALL LIGHT IN REACH. BED ALARM ON.
[2018-11-25] VITALS: BP 139/65
--- NOTE | 2018-11-25 00:10 | NUR ---
PT RESTING IN BED. RESP-EASY AND REGULAR. NO C/O AT THIS TIME. TOLERATING ROUTINE IV MED WITH NO PROBLEM. CALL LIGHT IN REACH. SEE SHIFT ASSESSMENT.
--- NOTE | 2018-11-25 04:00 | NUR ---
SLEEPING IN BED. RESP-EASY AND REGULAR. OXYGEN IN USE. CALL LIGHT IN REACH. BED ALARM ON.
--- NOTE | 2018-11-25 06:10 | NUR ---
TOLERATED ROUTINE MED WITH NO PROBLEM. NO C/O ATTHIS TIME. BSG-164, SEE EMAR. CALL LIGHT IN REACH.
[2018-11-25 07:13] LABS: BASO % 0.1 % (0.0-1.0); EOS # 0.1 10*3/uL (0.0-0.4); EOS % 1.4 % (1.0-4.0); HEMATOCRIT 29.7 % (42.0-52.0); HEMOGLOBIN 8.8 g/dl (14.0-18.0); LYMPH # 1.2 10*3/uL (1.3-4.4); LYMPH % 12.6 % (27.0-41.0); MEAN CORPUSCULAR HGB 29.6 pg (27.0-31.0); MEAN CORPUSCULAR HGB CONC 29.6 g/dl (33.0-37.0); MEAN PLATELET VOLUME 9.9 fl (9.6-12.3); MONO # 0.9 10*3/uL (0.1-1.0); MONO % 9.6 % (3.0-9.0); NEUT # 7.2 10*3/uL (2.3-7.9); PLATELET COUNT AUTOMATED 196 10*3/uL (130-400); RED BLOOD COUNT 2.97 10*6/uL (4.50-5.90); RED CELL DISTRI WIDTH 15.3 % (0-14.5); WHITE BLOOD COUNT 9.5 10*3/uL (4.8-10.8)
[2018-11-25 07:40] LABS: CREATININE 2.28 mg/dL (0.70-1.30); POTASSIUM 4.2 mmol/L (3.5-5.1)
[2018-11-25 08:00] VITALS: BP 130/60
[2018-11-25 12:00] VITALS: BP 129/59
[2018-11-25 16:00] VITALS: BP 121/55
[2018-11-25 20:00] VITALS: BP 118/67
--- NOTE | 2018-11-25 20:25 | NUR ---
PATIENT RESTING IN BED, WATCHING TELEVISION AT THIS TIME. DENIES ANY NEEDS CURRENTLY. ASKING TO BE REPOSITIONED BEFORE BED TIME. RN VERBALIZED UNDERSTANDING OF PATIENT. CALL LIGHT WITHIN REACH. RN WILL CONTINUE TO MONITOR
[2018-11-26 02:00] VITALS: BP 121/61
--- NOTE | 2018-11-26 05:15 | NUR ---
PATIENT RESTING IN BED WITH EYES CLOSDE AT THIS TIME. DISPLAYS NO SIGNS OR SYMPTOMS OF DISTRESS ON 2LITERS NASAL CANNULA. RESPIRATIONS ARE QUIET AND UNLABORED. CALL ELIO LEONG. RN WILL CONTINNUE TO MONITOR
[2018-11-26 06:34] LABS: BASO % 0.4 % (0.0-1.0); EOS # 0.2 10*3/uL (0.0-0.4); EOS % 1.8 % (1.0-4.0); HEMATOCRIT 28.3 % (42.0-52.0); HEMOGLOBIN 8.5 g/dl (14.0-18.0); LYMPH # 1.4 10*3/uL (1.3-4.4); LYMPH % 16.9 % (27.0-41.0); MEAN PLATELET VOLUME 9.4 fl (9.6-12.3); MONO # 0.9 10*3/uL (0.1-1.0); MONO % 10.8 % (3.0-9.0); NEUT # 5.6 10*3/uL (2.3-7.9); NEUT % 67.6 % (47.0-73.0); PLATELET COUNT AUTOMATED 207 10*3/uL (130-400); RED BLOOD COUNT 2.83 10*6/uL (4.50-5.90); RED CELL DISTRI WIDTH 15.2 % (0-14.5); WHITE BLOOD COUNT 8.3 10*3/uL (4.8-10.8)
[2018-11-26 06:56] LABS: CREATININE 2.17 mg/dL (0.70-1.30); POTASSIUM 4.5 mmol/L (3.5-5.1)
[2018-11-26 08:00] VITALS: BP 120/50
[2018-11-26] MEDS ORDERED: NYSTOP60 GM T (12:09)
[2018-11-26] MEDS ORDERED: CIPRO500 MG PO (12:09)
--- NOTE | 2018-11-26 12:27 | NUR ---
PATIENT REFUSED WOUND DISCHARGE PHOTOS AT THIS TIME DUE TO DRESSING CHANGE ALREADY COMPLETE.
--- NOTE | 2018-11-26 12:34 | NUR ---
Discharge instructions reviewed with patient/family. Patient receptive and verbalizes understanding. Follow-up care arranged. Written instructions given to patient/family. PATIENT'S HEPLOCK DISCONTINUED. PT TAKEN OFF FLOOR BY WHEELCHAIR BY SON AND TAKEN HOME. HARJINDER YANEZ
--- NOTE | 2018-11-27 07:54 | NUR ---
PHYSICAL THERAPY Nursing screen recieved. Patient discharged. Thank you. Floresita Bailey,PT
[2019-02-23] MEDS ORDERED: METOLAZONE2.5 MG PO (18:58)
[2019-02-23] MEDS ORDERED: NYSTOP60 GM TP (18:58)
[2019-02-23] MEDS ORDERED: GABAPENTIN100 M2 PO (19:00)
[2019-02-23] MEDS ORDERED: ACTOS15 M1 PO (19:01)
[2019-02-28] MEDS ORDERED: ENALAPRIL MALEA10 MG PO (14:32)
[2019-02-28] MEDS ORDERED: GABAPENTIN100 M2 PO (14:33)
[2019-03-10] MEDS ORDERED: Ipratropium Brom3 ML INH (10:44)
[2019-03-10] MEDS ORDERED: VITAMIN D50000 UNIT PO (10:46)
[2019-03-10] MEDS ORDERED: IRON325 M1 PO (10:47)
[2019-03-10] MEDS ORDERED: NEURONTIN100 MG PO (10:48)
[2019-03-10] MEDS ORDERED: KLOR-CON 1010 ME1 PO (10:50)
[2019-03-10] MEDS ORDERED: LEVEMIR100 UNIT/1 SC (10:52)
== END 2018-11-26 12:34 | disposition home or self-care (01) | DRG 871 ==
PROVIDERS: Emergency Medicine Emergency Medical Services; Internal Medicine; Student in an Organized Health Care Education/Training Program; ADMIT Internal Medicine
DX: A41.9 Sepsis, unspecified organism (principal); N17.0 Acute kidney failure with tubular necrosis; E43 Unspecified severe protein-calorie malnutrition; J96.21 Acute and chronic respiratory failure with hypoxia; N39.0 Urinary tract infection, site not specified; I50.32 Chronic diastolic (congestive) heart failure; I85.00 Esophageal varices without bleeding; I13.0 Hypertensive heart and chronic kidney disease with heart failure and stage 1 through stage 4 chronic kidney disease, or unspecified chronic kidney disease; L03.116 Cellulitis of left lower limb; L03.115 Cellulitis of right lower limb; Z68.42 Body mass index [BMI] 45.0-49.9, adult; K52.9 Noninfective gastroenteritis and colitis, unspecified; E87.5 Hyperkalemia; R65.20 Severe sepsis without septic shock; N18.3 Chronic kidney disease, stage 3 (moderate); K76.0 Fatty (change of) liver, not elsewhere classified; E11.22 Type 2 diabetes mellitus with diabetic chronic kidney disease; J44.9 Chronic obstructive pulmonary disease, unspecified; E66.01 Morbid (severe) obesity due to excess calories; L97.519 Non-pressure chronic ulcer of other part of right foot with unspecified severity; N40.0 Benign prostatic hyperplasia without lower urinary tract symptoms; B96.20 Unspecified Escherichia coli [E. coli] as the cause of diseases classified elsewhere; E78.5 Hyperlipidemia, unspecified; D53.9 Nutritional anemia, unspecified; I87.2 Venous insufficiency (chronic) (peripheral); E11.65 Type 2 diabetes mellitus with hyperglycemia; I87.8 Other specified disorders of veins; Z79.4 Long term (current) use of insulin; Z87.01 Personal history of pneumonia (recurrent); Z86.73 Personal history of transient ischemic attack (TIA), and cerebral infarction without residual deficits; Z85.22 Personal history of malignant neoplasm of nasal cavities, middle ear, and accessory sinuses; Z86.711 Personal history of pulmonary embolism; Z87.440 Personal history of urinary (tract) infections; Z82.49 Family history of ischemic heart disease and other diseases of the circulatory system; Z83.3 Family history of diabetes mellitus; Z80.9 Family history of malignant neoplasm, unspecified; Z79.82 Long term (current) use of aspirin; Z79.899 Other long term (current) drug therapy; Z85.828 Personal history of other malignant neoplasm of skin; Z85.46 Personal history of malignant neoplasm of prostate

== ENCOUNTER → 2018-12-06 | Outpatient (CLI) | payer MEDICARE ==
[~2018-12-06] MED LIST changes: +ACTOS15 M1 PO; +ANORO ELLIPTA1 EACH INH; +ASPIRIN81 M1 PO; +CARVEDILOL6.25 MG PO; +CEFTRIAXONE1 GM IV; +CIPRO500 MG PO; +COREG6.25 MG PO; +ERGOCAL2500 UNIT PO; +FERROUSAL325 MG PO; +GABAPENTIN100 M2 PO; +GLUCOTROL10 MG PO; +IMDUR SA30 MG PO; +IRON325 M1 PO; +Ipratropium Brom3 ML INH; +KLOR-CON 1010 ME1 PO; +LEVEMIR100 UNIT/1 SC; +LEVOTHYROXINE50 MCG PO; +METOLAZONE2.5 MG PO; +NEURONTIN100 MG PO; +NOVOLOG FL100 UNIT/1 SQ; +NYSTOP60 GM T; +NYSTOP60 GM TP; +PROSCAR5 M1 PO; +PROTONIX40 MG PO; +SENOKOT PO; +VITAMIN D50000 UNIT PO
--- NOTE | 2018-12-06 12:44 | NUR ---
6 minute walk: Pt.'s O2 at rest was 91% [employer] 18 B/P 155/62 Pt. was walked approximatley 15 feet and his Spo2 dropped to 84%. Pt. was placed on 3 liters and his Spo2 skyler to 93% after a few minutes H.R. was 64, R.R. 28 B/P 191/62. Pt. was labored and appeared to be short of breath while ambulating. Pt. appeared to be ore comfortable in the room with 3LNC on.
== END | disposition home or self-care (01) ==
LOC: RESCLI 01:30
DX: I13.0 Hypertensive heart and chronic kidney disease with heart failure and stage 1 through stage 4 chronic kidney disease, or unspecified chronic kidney disease (principal); I50.30 Unspecified diastolic (congestive) heart failure; E11.22 Type 2 diabetes mellitus with diabetic chronic kidney disease; N18.3 Chronic kidney disease, stage 3 (moderate); E66.01 Morbid (severe) obesity due to excess calories; N40.1 Benign prostatic hyperplasia with lower urinary tract symptoms; I87.2 Venous insufficiency (chronic) (peripheral); E78.5 Hyperlipidemia, unspecified; R26.2 Difficulty in walking, not elsewhere classified; I25.118 Atherosclerotic heart disease of native coronary artery with other forms of angina pectoris; R05 Cough; E03.9 Hypothyroidism, unspecified; Z79.82 Long term (current) use of aspirin; Z79.899 Other long term (current) drug therapy

== ENCOUNTER → 2019-01-02 | Outpatient (CLI) | payer MEDICARE | END | disposition home or self-care (01) | LOC: RESCLI 10:18 → WOUNDCARE 10:18 | DX: E11.621 Type 2 diabetes mellitus with foot ulcer (principal); L97.422 Non-pressure chronic ulcer of left heel and midfoot with fat layer exposed; E11.51 Type 2 diabetes mellitus with diabetic peripheral angiopathy without gangrene; E78.5 Hyperlipidemia, unspecified; E11.22 Type 2 diabetes mellitus with diabetic chronic kidney disease; I13.0 Hypertensive heart and chronic kidney disease with heart failure and stage 1 through stage 4 chronic kidney disease, or unspecified chronic kidney disease; N18.3 Chronic kidney disease, stage 3 (moderate); I50.9 Heart failure, unspecified; Z86.73 Personal history of transient ischemic attack (TIA), and cerebral infarction without residual deficits; Z86.711 Personal history of pulmonary embolism; Z85.828 Personal history of other malignant neoplasm of skin ==

== ENCOUNTER → 2019-01-12 | Outpatient (CLI) | payer MEDICARE | END | disposition home or self-care (01) | LOC: WOUNDCARE 02:05 | DX: E11.621 Type 2 diabetes mellitus with foot ulcer (principal); L97.421 Non-pressure chronic ulcer of left heel and midfoot limited to breakdown of skin; L97.511 Non-pressure chronic ulcer of other part of right foot limited to breakdown of skin; E11.51 Type 2 diabetes mellitus with diabetic peripheral angiopathy without gangrene; E11.22 Type 2 diabetes mellitus with diabetic chronic kidney disease; I13.0 Hypertensive heart and chronic kidney disease with heart failure and stage 1 through stage 4 chronic kidney disease, or unspecified chronic kidney disease; N18.3 Chronic kidney disease, stage 3 (moderate); I50.9 Heart failure, unspecified; E78.5 Hyperlipidemia, unspecified; Z86.73 Personal history of transient ischemic attack (TIA), and cerebral infarction without residual deficits; Z86.711 Personal history of pulmonary embolism ==

== ENCOUNTER → 2019-01-18 | Outpatient (CLI) | payer MEDICARE | END | disposition home or self-care (01) | LOC: WOUNDCARE 01:24 | DX: E11.621 Type 2 diabetes mellitus with foot ulcer (principal); L97.421 Non-pressure chronic ulcer of left heel and midfoot limited to breakdown of skin; L97.511 Non-pressure chronic ulcer of other part of right foot limited to breakdown of skin; E11.51 Type 2 diabetes mellitus with diabetic peripheral angiopathy without gangrene; E11.22 Type 2 diabetes mellitus with diabetic chronic kidney disease; I13.0 Hypertensive heart and chronic kidney disease with heart failure and stage 1 through stage 4 chronic kidney disease, or unspecified chronic kidney disease; N18.3 Chronic kidney disease, stage 3 (moderate); I50.9 Heart failure, unspecified; E78.5 Hyperlipidemia, unspecified; Z86.73 Personal history of transient ischemic attack (TIA), and cerebral infarction without residual deficits; Z86.718 Personal history of other venous thrombosis and embolism ==

== ENCOUNTER → 2019-01-25 | Outpatient (CLI) | payer MEDICARE | END | disposition home or self-care (01) | LOC: WOUNDCARE 00:43 | DX: E11.621 Type 2 diabetes mellitus with foot ulcer (principal); L97.421 Non-pressure chronic ulcer of left heel and midfoot limited to breakdown of skin; L97.511 Non-pressure chronic ulcer of other part of right foot limited to breakdown of skin; E11.51 Type 2 diabetes mellitus with diabetic peripheral angiopathy without gangrene; E11.22 Type 2 diabetes mellitus with diabetic chronic kidney disease; I13.0 Hypertensive heart and chronic kidney disease with heart failure and stage 1 through stage 4 chronic kidney disease, or unspecified chronic kidney disease; N18.3 Chronic kidney disease, stage 3 (moderate); I50.9 Heart failure, unspecified; E78.5 Hyperlipidemia, unspecified; Z86.73 Personal history of transient ischemic attack (TIA), and cerebral infarction without residual deficits; Z86.711 Personal history of pulmonary embolism ==

== ENCOUNTER 2019-03-03 08:00 | Inpatient (IN) | payer MEDICARE ==
[~2019-03-03] VITALS: Ht 182.8 cm; Wt 129.9 kg
[2019-03-03] VITALS (13 sets, daily range): BP systolic 87–125; BP diastolic 42–60
--- NOTE | ~2019-03-03 | EKG ---
[place], [place] ELECTROCARDIOGRAM REPORT NAME: TONY CANCHOLA UNIT #: [id number] ROOM: [facility] DOCTOR: BOOKER DRAFT REPORT BIRTHDATE: [birth year] [facility] Test Date: 2019-03-03 Test Time: 08:01:41 Pat Name: TONY CANCHOLA Department: Room: [facility] Gender: M Cardiology Technologist: Chelsea Vanegas : 1950 Requested By: FORTINO DAY Order Number: [id number] Reading MD: Julio César Woodson MD Measurements Intervals [place] Rate: 62 P: 25 DE: 191 QRS: 17 QRSD: 106 T: 57 QT: 403 QTc: 410 Interpretive Statements Sinus rhythm Compared to ECG 02/23/2019 12:50:43 Left bundle-branch block no longer present Electronically Signed On 03-04-2019 12:46:27 PDT by Julio César Woodson MD CM:EKGRPT:ELECTROCARDIOGRAM REPORT [id number] 1246 FORTINO CELESTE DRAFT REPORT FORTINO DAY M.D.
--- NOTE | ~2019-03-03 | EKG ---
[place], [place] ELECTROCARDIOGRAM REPORT NAME: TONY CANCHOLA UNIT #: [id number] ROOM: [facility] DOCTOR: BOOKER DRAFT REPORT BIRTHDATE: [birth year] [facility] Test Date: 2019-03-03 Test Time: 13:34:16 Pat Name: TONY CANCHOLA Department: Room: [facility] Gender: M Asbestos Shingle Inspector: Chelsea Vanegas : 1950 Requested By: FORTINO DAY Order Number: [id number] Reading MD: Julio César Woodson MD Measurements Intervals [place] Rate: 49 P: 15 CA: 165 QRS: 31 QRSD: 107 T: 72 QT: 457 QTc: 413 Interpretive Statements Sinus bradycardia Compared to ECG 02/23/2019 12:50:43 Left bundle-branch block no longer present Electronically Signed On 03-04-2019 12:46:53 PDT by Julio César Woodson MD CM:EKGRPT:ELECTROCARDIOGRAM REPORT [id number] 1246 FORTINO CELESTE DRAFT REPORT FORTINO DAY M.D.
--- NOTE | ~2019-03-03 | CON ---
[place], [place] REPORT OF CONSULTATION NAME: TONY CANCHOLA UNIT #: [id number] ROOM: [facility] DOCTOR: BOBBY DINH MD BIRTHDATE: [birth year] DOS: 03/03/2019 PULMONARY CONSULTATION, EVALUATION, AND MANAGEMENT Consultation was done as ordered by the hospitalist service. REASON FOR CONSULTATION: For management of acute respiratory failure and current acute critical illness. HISTORY OF PRESENT ILLNESS: A 68-year-old white male patient, who has been admitted to the hospital. The patient recently transferred to the [facility] for further care on 02/28/2019. The patient was treated for congestive heart failure, anasarca, and other symptoms. The patient presented back to the hospital. The patient has been noted with increased shortness of breath. The patient with progressive increase unresponsiveness and difficulty to arouse in the nursing facility. The patient also has reported inability to urinate as well. The patient does have a Mata catheter, which was placed on 03/02/2019, with about 100 mL of urine was drained. He has been admitted to the hospital. The patient was brought to the Emergency Room, noted with progressive acute kidney injury and noted with acute respiratory failure as well. The patient has not been noted any symptoms of fever or chills reported at the present time. The other history is review of my medical record documentation on previous assessment as well the assessment, which has been done by the current attending notes and previous recent hospitalization. PAST MEDICAL HISTORY: 1. History of severe morbid obesity. 2. History of chronic kidney disease, stage 2 to stage 3 was known. 3. Type 2 diabetes mellitus. 4. Dyslipidemia. 5. Essential hypertension. 6. Morbid obesity. 7. Congestive heart failure, diastolic dysfunction. 8. Hospitalization with congestive heart failure, anasarca. 9. Essential hypertension. 10. Suspected obstructive sleep apnea disorder. 11. History of cirrhosis of the liver. 12. History of past cerebrovascular accident. 13. Morbid obesity. PAST SURGICAL HISTORY: 1. Positive biopsy. 2. EGD. 3. Removal of skin cancer. 4. Banding of esophageal varices as well. MEDICATIONS: Medication from the nursing facility noted as a Bumex oral 1 mg b.i.d., Coreg, enalapril, vitamin D, finasteride, gabapentin, glipizide, Imdur, levothyroxine, metolazone, nystatin, Protonix, Actos, simvastatin, Flomax, and aspirin. [place], [place] REPORT OF CONSULTATION NAME: TONY CANCHOLA [id number] UNIT #: [id number] ROOM: [facility] DOCTOR: BOBBY DINH MD BIRTHDATE: [birth year] CURRENT MEDICATIONS: The current medications, which has been started on this admission were only IV Rocephin, morphine p.r.n. use, and others. DRUG ALLERGIES: No medication allergies. SOCIAL HISTORY: He is nonsmoker, lifetime. There is no history of alcohol use or illicit drug use. FAMILY HISTORY: The patient's father from complication of acute myocardial infarction. Mother is living with history of diabetes and cancer. PHYSICAL EXAMINATION: GENERAL: The patient is a 68-year-old white male, who has been noted somnolent, arousable with vocal commands. Height of 5 feet 11 inches, weight of 206 pounds, and BMI of 38. VITAL SIGNS: Normal temperature, respiratory rate of 18-20, heart rate of 63-51, and blood pressure of 87/43-96/42. The pulse oxygen saturation at this time on 3 liters nasal cannula is 94% saturation, 98% saturation. HEENT: On examination, chronic severe morbid obesity. Head was atraumatic. Eye nonicterus. Decreased posterior oropharyngeal space. CARDIOVASCULAR SYSTEM: S1, S2 audible. LUNGS: Noted decreased breath sounds in the lungs bilaterally. ABDOMEN: Morbidly obese. Bowel sounds present. EXTREMITIES: Noted with chronic venous stasis changes, pigmentation with edema. MUSCULOSKELETAL: Without any acute deformities. SKIN: No lesions or rashes. LABORATORY DATA: CBC this morning, WBC is 6.5, hemoglobin is 8, hematocrit is 28.8, and platelet count is 208,000. PT and PTT of the patient this morning was noted as normal. CMP that was done this morning, has BUN of 122, creatinine of 6.12, glucose of 82, potassium of 5.4, and CO2 of 39. CMP of the patient that was done on 03/01/2019, BUN was 91 at that time, creatinine was 3.0. Blood culture from previous admission, no bacterial growth. The BMP of the patient on discharge on the 02/28/2019, BUN was 91 at that time, creatinine was 2.84. Arterial blood gas in the Emergency Room, pH of 7.16, pCO2 of 107, and pO2 of 112. IMAGING DATA: The chest x-ray, 1 view, which was done in the Emergency Room reviewed from the PACS images was noted without any acute pulmonary abnormalities. IMPRESSION: 1. Severe acute hypercapnic hypoxic respiratory failure, metabolic acidosis, worsening kidney function, acute on chronic severe kidney injury. 2. Morbid obesity. 3. Congestive heart failure, diastolic dysfunction. 4. Hyperkalemia related. 5. There was no evidence of any pneumonia. 6. The patient's urinary tract infection to be excluded part of the assessment [place], [place] REPORT OF CONSULTATION NAME: TONY CANCHOLA UNIT #: [id number] ROOM: [facility] DOCTOR: BOBBY DINH MD BIRTHDATE: [birth year] of current kidney injury. 7. History of type 2 diabetes mellitus, past cerebrovascular accident, and others. PLAN OF MANAGEMENT: The patient has been started on bilevel pressure 18/10, arterial blood gas to be done in about 2-3 hours, reassess if the patient's somnolence persisted and the BiPAP would not notice meaningful improvement in the respiratory status, hypercapnia. Continue intubation and mechanical ventilation. Nephrology consultation has been ordered. DVT prophylaxis will be given as well with additional treatment changes will be made based on progression of the illness. Supportive care, other therapy, plan of management, continued treatment changes made according to progression of the illness. Total time spent in the patient's pulmonary critical care evaluation and management was 37 minutes. BOBBY MADDOX MD CM:CONSTR:REPORT OF CONSULTATION [id number] 03/14/19 [id number] interface
--- NOTE | ~2019-03-03 | EKG ---
[place], [place] ELECTROCARDIOGRAM REPORT NAME: TONY CANCHOLA UNIT #: [id number] ROOM: [facility] DOCTOR: BOOKER DRAFT REPORT BIRTHDATE: [birth year] [facility] Test Date: 2019-03-03 Test Time: 11:29:40 Pat Name: TONY CANCHOLA Department: Room: [facility] Gender: M Ups Driver: Chelsea Vanegas : 1950 Requested By: FORTINO DAY Order Number: [id number] Reading MD: Julio César Woodson MD Measurements Intervals [place] Rate: 53 P: -44 ND: 118 QRS: 28 QRSD: 105 T: 62 QT: 440 QTc: 414 Interpretive Statements Sinus rhythm Borderline short ND interval Baseline wander in lead(s) V1 Compared to ECG 02/23/2019 12:50:43 Left bundle-branch block no longer present Electronically Signed On 03-04-2019 12:46:42 PDT by Julio César Woodson MD CM:EKGRPT:ELECTROCARDIOGRAM REPORT [id number] 1246 FORTINO CELESTE DRAFT REPORT FORTINO DAY M.D.
[~2019-03-03 08:00] MED LIST changes: -CEFTRIAXONE1 GM IV; -IRON325 M1 PO; -Ipratropium Brom3 ML INH; -KLOR-CON 1010 ME1 PO; -NEURONTIN100 MG PO; -VITAMIN D50000 UNIT PO
[2019-03-03 08:51] LABS: BASO % 0.1 % (0.0-1.0); EOS # 0.1 10*3/uL (0.0-0.4); EOS % 1.1 % (1.0-4.0); HEMATOCRIT 28.8 % (42.0-52.0); LYMPH % 10.2 % (27.0-41.0); MEAN CELL VOLUME 107.1 fl (80.0-94.0); MEAN CORPUSCULAR HGB 29.7 pg (27.0-31.0); MEAN CORPUSCULAR HGB CONC 27.8 g/dl (33.0-37.0); MEAN PLATELET VOLUME 10.6 fl (9.6-12.3); MONO # 0.7 10*3/uL (0.1-1.0); MONO % 7.7 % (3.0-9.0); NEUT # 7.7 10*3/uL (2.3-7.9); NEUT % 80.5 % (47.0-73.0); PLATELET COUNT AUTOMATED 208 10*3/uL (130-400); RED BLOOD COUNT 2.69 10*6/uL (4.50-5.90); WHITE BLOOD COUNT 9.5 10*3/uL (4.8-10.8)
[2019-03-03 08:57] LABS: ABG BASE EXCESS 7.1 mmol/L (-2.0-2.0); ABG HCO3 37.3 mmol/l (22-26); ABG O2 SATURATION 97.6 % (95-97)
[2019-03-03 09:00] LABS: ACT PARTIAL THROMBO TIME 27.1 SECONDS (20.8-31.5); ARTERIAL BLOOD GAS PH 7.166 (7.35-7.45)
[2019-03-03 09:06] LABS: BILIRUBIN NEGATIVE (NEGATIVE); BLOOD 3+ (NEGATIVE); CLARITY CLOUDY (CLEAR); COLOR YELLOW (YELLOW); GLUCOSE NEGATIVE (NEGATIVE); KETONE NEGATIVE (NEGATIVE); LEUKO ESTERASE 2+ (NEGATIVE); NITRITE POSITIVE (NEGATIVE); SPECIFIC GRAVITY >= 1.030 (1.005-1.030); UROBILINOGEN 0.2 E.U./dl (0.2-1.0)
[2019-03-03 09:07] LABS: ALBUMIN 2.4 gm/dl (3.1-4.5); ALKALINE PHOSPHATASE 96 U/L (45-117); BUN 122 mg/dl (7-24); CHLORIDE 96 mmol/L (98-107); CREATININE 6.13 mg/dL (0.70-1.30); POTASSIUM 5.4 mmol/L (3.5-5.1); SGOT/AST 23 IU/L (3-35); SGPT/ALT 25 U/L (12-78); SODIUM 141 mmol/L (136-145)
[2019-03-03 09:14] LABS: TROPONIN I < 0.015 ng/ml (<0.045)
[2019-03-03 09:22] LABS: BACTERIA 4+; RBC TNTC rbc/hpf (0-2); WBC TNTC wbc/hpf (0-5)
--- NOTE | 2019-03-03 09:30 | NUR ---
PATIENT PLACED ON BI-PAP 04/04, BACK UP RATE OF 8, FIOW 40%. PULSE OX 94%.
--- NOTE | 2019-03-03 10:45 | NUR ---
A 68, admitted to ICCU, under the services of ARIANE Hastings DO with a diagnosis of UTI/ANEMIA/RESP. FAILURE. Chief complaint is DROWSY,INCREASED EDEMA,NO URINE OUTPUT X 2 DAYS. Patient arrived via stretcher from ER. Monitor applied. Initial assessment completed. Vital signs taken and recorded. ARIANE HASTINGS DO notified of admission to the unit. Orders received. See assessment for past medical history, medications and allergies. Patient and/or family oriented to unit. [facility] ICCU visitation policy reviewed. Clothing/patient valuable form completed. [place]
[2019-03-03 11:21] LABS: ABG BASE EXCESS 6.8 mmol/L (-2.0-2.0); ABG HCO3 36.6 mmol/l (22-26); ABG O2 SATURATION 96.7 % (95-97)
[2019-03-03 11:22] LABS: ARTERIAL BLOOD GAS PO2 85.7 mmHg (80-90)
[2019-03-03 11:27] LABS: ARTERIAL BLOOD GAS PCO2 98.6 mmHg (35-45); ARTERIAL BLOOD GAS PH 7.187 (7.35-7.45)
--- NOTE | 2019-03-03 12:17 | NUR ---
DR MADODX UPDATED ON ABG RESULTS. NEW ORDERS RECEIVED.
--- NOTE | 2019-03-03 12:57 | NUR ---
PT TO CT SCAN.
--- NOTE | 2019-03-03 13:36 | NUR ---
Dr. Gardner was notified of consult.
--- NOTE | 2019-03-03 14:08 | NUR ---
UPDATED PT'S FAMILY MEMBER ON PT'S CONDITION AND PLAN OF CARE.
--- NOTE | 2019-03-03 15:07 | NUR ---
12:40 PM IPAP INCREASED TO [address] MADDOX ORDER. 01:10 PM PT TRANSPORTED TO CT SCAN. PT'S RESPIRATIONS ASSISTED WITH AMBU BAG. UPON ARRIVAL TO CT SCAN, PT PLACED ON BIPAP T/O DURATION OF THE SCAN. PT TRANSPORTED BACK TO ICCU ASSISTING RESPS WITH AMBU BAG. PT PLACED ON BIPAP UPON ARRIVAL TO ICCU. PT STABLE T/O TRANSPORT. HR 58-70 SPO2 95%. RESPS EASY AND UNLABORED.
--- NOTE | 2019-03-03 15:14 | NUR ---
DR BRAY IN TO SEE PT.
--- NOTE | 2019-03-03 15:56 | NUR ---
DR BRAY SPOKE WITH PT'S SON,AMELIA, AND PT'S NEO JACKSON, R/T PT'S CONDITION,PT'S WISHES AND PLAN OF CARE. ORDERS RECEIVED ONLY TO BOLUS 1 LITER IVF THEN RUN NS 150CC/HR. ABG BIENG DRAWN BY RESP. THERAPY.
[2019-03-03 16:26] LABS: ABG BASE EXCESS 5.5 mmol/L (-2.0-2.0); ABG HCO3 35.2 mmol/l (22-26)
[2019-03-03 16:37] LABS: ARTERIAL BLOOD GAS PH 7.171 (7.35-7.45)
--- NOTE | 2019-03-03 17:00 | NUR ---
DR BRAY AND DR SALAMANCA SPOKEAT LENGTH WITH PT AND FAMILY REGARDING PT'S WISHES REGARDING CODE STATUS AND PLAN OF CARE. PT AGREED TO DNRCCA
--- NOTE | 2019-03-03 17:31 | NUR ---
DR MADDOX UPDATED ON LAB RESULTS. ORDER RECEIVED FOR INTUBATION. VENT SETTINGS GIVEN.
--- NOTE | 2019-03-03 18:08 | NUR ---
Infomed consent obtained from patient by Dr. SALAMANCA for elective intubation. Patient intubated with 8 Tamazight endotracheal tube orally X 3 attempts. Patient sedated with ETIMADATE,SUCCYCHOLINE Respiratory therapy at bedside. Crash cart with emergency drugs available. Endotracheal tube inflated with 8cc's. Lungs auscultated for equality of breath sounds. Tube secured with Tube tamer at 24cm's. at level of LIP. Patient tolerated procedure FAIR. Portable chest X-ray obtained and reviewed for tube placement. Patient connected to ventilator CMV mode, 500 tidal volume, 50 FIO2, 5 PEEP, and 0 pressure support. OGT PLACED AND PLACEMENT VERIFIED WITH AN AIR BOLUS. CXR ORDERED. RUIZ CHRISTIANSON
--- NOTE | 2019-03-03 18:29 | NUR ---
PT RESTING. PT AWAKENS WITH STIMULI. VSS.
--- NOTE | 2019-03-03 18:34 | NUR ---
CODE STATUS IS DNCA. PT'S RENETTA AND NEO SHIN SIGNED PAPERS.
[2019-03-03 20:07] LABS: ABG BASE EXCESS 5.9 mmol/L (-2.0-2.0); ABG HCO3 33.2 mmol/l (22-26); ABG O2 SATURATION 96.5 % (95-97); ARTERIAL BLOOD GAS PCO2 66.6 mmHg (35-45); ARTERIAL BLOOD GAS PH 7.317 (7.35-7.45); ARTERIAL BLOOD GAS PO2 97.7 mmHg (80-90)
--- NOTE | 2019-03-03 20:30 | NUR ---
RONALD HEARD ABOUT FAXING DEMOS TO [facility], SO I CALLED AND SPOKE WITH THE NURSING PARKING LINE PAINTER. SHE STATED THEY GOT A CALL FROM A DR. SALAMANCA, BUT COULD NOT REACH HIM TO SPEAK WITH THE ACCEPTING DR. I GAVE THEM DR. HERNÁNDEZ NUMBER AND HE WAS ABLE TO SPEAK WITH THEM. DEMOS WERE SENT, NOW AWAITING BED.
[2019-03-03] MEDS ORDERED: CEFTRIAXONE1 GM IV (20:35)
[2019-03-03 21:18] LABS: BASO % 0.2 % (0.0-1.0); EOS # 0.1 10*3/uL (0.0-0.4); EOS % 1.3 % (1.0-4.0); HEMATOCRIT 27.2 % (42.0-52.0); HEMOGLOBIN 7.7 g/dl (14.0-18.0); LYMPH # 0.9 10*3/uL (1.3-4.4); LYMPH % 20.5 % (27.0-41.0); MEAN CELL VOLUME 104.6 fl (80.0-94.0); MEAN CORPUSCULAR HGB 29.6 pg (27.0-31.0); MEAN CORPUSCULAR HGB CONC 28.3 g/dl (33.0-37.0); MEAN PLATELET VOLUME 10.3 fl (9.6-12.3); MONO # 0.4 10*3/uL (0.1-1.0); MONO % 8.8 % (3.0-9.0); NEUT # 3.1 10*3/uL (2.3-7.9); NEUT % 68.5 % (47.0-73.0); PLATELET COUNT AUTOMATED 164 10*3/uL (130-400); RED CELL DISTRI WIDTH 14.6 % (0-14.5); WHITE BLOOD COUNT 4.5 10*3/uL (4.8-10.8)
[2019-03-03 21:30] LABS: CREATININE 6.04 mg/dL (0.70-1.30); POTASSIUM 4.7 mmol/L (3.5-5.1)
--- NOTE | 2019-03-03 22:10 | NUR ---
PATIENTS BS 52, 1AMP DEXTROSE GIVEN.
[2019-03-04] VITALS: BP 123/57
--- NOTE | 2019-03-04 00:19 | NUR ---
REPORT CALLED TO RN AT [facility].
--- NOTE | 2019-03-04 00:34 | NUR ---
PATIENT LEFT VIA [facility] FOR TRANSFER TO [facility]. PAPERWORK SENT.
--- NOTE | 2019-03-05 08:23 | NUR ---
PHYSICAL THERAPY Nursing screren received. Medical needs required transfer to high level of care. PAtient discharged. Thank you. Floresita Kemp,PT
[2019-03-10] MEDS ORDERED: Ipratropium Brom3 ML INH (10:44)
[2019-03-10] MEDS ORDERED: VITAMIN D50000 UNIT PO (10:46)
[2019-03-10] MEDS ORDERED: IRON325 M1 PO (10:47)
[2019-03-10] MEDS ORDERED: NEURONTIN100 MG PO (10:48)
[2019-03-10] MEDS ORDERED: KLOR-CON 1010 ME1 PO (10:50)
[2019-03-10] MEDS ORDERED: LEVEMIR100 UNIT/1 SC (10:52)
== END 2019-03-04 00:34 | disposition short-term general hospital (02) | DRG 208 ==
LOC: ED 08:00 → EDHOLD 09:33 → ICCU 09:56
PROVIDERS: Emergency Medicine; Internal Medicine; Internal Medicine Critical Care Medicine; ADMIT Internal Medicine
PROC: 5A1935Z Respiratory Ventilation, Less than 24 Consecutive Hours (ICD-10-PCS; principal; 2019-03-03)
PROC: 0BH17EZ Insertion of Endotracheal Airway into Trachea, Via Natural or Artificial Opening (ICD-10-PCS; principal; 2019-03-03)
PROC: 5A09357 Assistance with Respiratory Ventilation, Less than 24 Consecutive Hours, Continuous Positive Airway Pressure (ICD-10-PCS; principal; 2019-03-03)
DX: J96.21 Acute and chronic respiratory failure with hypoxia (principal); N17.0 Acute kidney failure with tubular necrosis; G93.41 Metabolic encephalopathy; E43 Unspecified severe protein-calorie malnutrition; N39.0 Urinary tract infection, site not specified; I50.32 Chronic diastolic (congestive) heart failure; E87.2 Acidosis; I13.2 Hypertensive heart and chronic kidney disease with heart failure and with stage 5 chronic kidney disease, or end stage renal disease; N18.5 Chronic kidney disease, stage 5; J96.22 Acute and chronic respiratory failure with hypercapnia; E11.40 Type 2 diabetes mellitus with diabetic neuropathy, unspecified; I95.89 Other hypotension; E86.1 Hypovolemia; D53.9 Nutritional anemia, unspecified; E86.0 Dehydration; R00.1 Bradycardia, unspecified; E87.5 Hyperkalemia; D72.810 Lymphocytopenia; E83.41 Hypermagnesemia; R34 Anuria and oliguria; Z66 Do not resuscitate; Z51.5 Encounter for palliative care; K74.60 Unspecified cirrhosis of liver; E11.51 Type 2 diabetes mellitus with diabetic peripheral angiopathy without gangrene; E66.01 Morbid (severe) obesity due to excess calories; E87.8 Other disorders of electrolyte and fluid balance, not elsewhere classified; E11.22 Type 2 diabetes mellitus with diabetic chronic kidney disease; N18.3 Chronic kidney disease, stage 3 (moderate); E78.5 Hyperlipidemia, unspecified; Z91.81 History of falling; Z86.73 Personal history of transient ischemic attack (TIA), and cerebral infarction without residual deficits; Z86.711 Personal history of pulmonary embolism; Z85.22 Personal history of malignant neoplasm of nasal cavities, middle ear, and accessory sinuses; Z82.49 Family history of ischemic heart disease and other diseases of the circulatory system; Z83.3 Family history of diabetes mellitus; Z80.8 Family history of malignant neoplasm of other organs or systems; Z79.82 Long term (current) use of aspirin; Z79.899 Other long term (current) drug therapy; Z79.84 Long term (current) use of oral hypoglycemic drugs; Z68.38 Body mass index [BMI] 38.0-38.9, adult